=== PATIENT | female | born 1955 | race Caucasian/White ===

== ENCOUNTER → 2019-08-01 | Outpatient (CLI) | payer MEDICARE, MEDICAID ==
[~2019-08-01] MED LIST: FISH1000 PO; LISI20TA19 PO; MULTCAP PO; NAPR-885 PO; OMEP-218 PO
--- NOTE | 2019-08-01 18:00 | ECGEPIP ---
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
== END ==
LOC: M EKG 15:30
PROVIDERS: ATTEND Anesthesiology
DX: Z01.810 Encounter for preprocedural cardiovascular examination (principal)

== ENCOUNTER 2019-08-04 08:02 | Day surgery (SDC) | payer MEDICARE, MEDICAID ==
[~2019-08-04] VITALS: Ht 172.7 cm; Wt 113.9 kg
[2019-08-04 09:02] LABS: HEMATOCRIT 46.5 % (36.0-47.0); MEAN CORPUSCULAR HEMOGLOBIN 28.7 pg (27.0-33.0); MEAN CORPUSCULAR HGB CONC 32.3 g/dl (32.0-36.5); MEAN CORPUSCULAR VOLUME 89.1 fl (80.0-96.0); PLATELET COUNT, AUTOMATED 286 10^3/uL (150-450); RED BLOOD COUNT 5.22 10^6/uL (4.00-5.40); WHITE BLOOD COUNT 8.8 10^3/uL (4.0-10.0)
[2019-08-04] MEDS ORDERED: PROPOFOL 200 MG/20 ML VIAL As Ordered ONE (09:45)
[2019-08-04] MEDS ORDERED: LIDOCAINE 2% INJ 100 MG/5 ML SDV (FOR ANES.) As Ordered ONE (09:45)
[2019-08-04] MEDS ORDERED: ONDANSETRON 4MG/2ML VIAL (J2405) As Ordered ONE (09:46)
[2019-08-04] MEDS ORDERED: dexameTHASONE 4 MG/ML 1ML VIAL (J1100) As Ordered ONE (09:46)
[2019-08-04] MEDS ORDERED: KETOROLAC 60 MG/2 ML VIAL (J1885) As Ordered ONE (09:46)
[2019-08-04] MEDS ORDERED: fentaNYL 100 MCG/2 ML INJECTION (J3010) As Ordered ONE (09:49)
[2019-08-04] MEDS ORDERED: MIDAZOLAM INJ 2 MG/2 ML VIAL (J2250) As Ordered ONE (09:49)
[2019-08-04] MEDS ORDERED: PHENYLephrine HCL 500 MCG/5 ML (100MCG/ML) SYRINGE (J2370) As Ordered ONE (10:11)
[2019-08-04] MEDS ORDERED: LR 1,000 ML IV SCH (11:00)
[2019-08-04] MEDS ORDERED: oxyCODONE 5MG TAB PO PRN (11:00)
[2019-08-04] MEDS ORDERED: ONDANSETRON 4MG/2ML VIAL (J2405) IV PRN (11:00)
[2019-08-04] MEDS ORDERED: fentaNYL 100 MCG/2 ML INJECTION (J3010) IV PRN (11:00)
[2019-08-04 11:15] VITALS: BP 133/67
[2019-08-04] MEDS ORDERED: ACETAMINOPHEN 500 MG TAB PO ONE (12:00)
--- NOTE | 2019-08-07 15:58 | RO ---
DATE OF OPERATION: 08/04/2019 PREOPERATIVE DIAGNOSIS: Postmenopausal bleeding. POSTOPERATIVE DIAGNOSIS: Postmenopausal bleeding. PROCEDURE: Hysteroscopy, dilation and curettage (D and C), polypectomy. SURGEON: Jose Zuniga MD DIESEL SERVICE APPRENTICE: ANESTHESIA: General endotracheal. ESTIMATED BLOOD LOSS: 10 mL. URINE OUTPUT: 200 mL. FINDINGS: Normal size uterus. Moderately large endometrial polyp attached to the posterior uterine fundus. Otherwise, normal appearing endometrial cavity. OPERATIVE SUMMARY: The patient taken to the operating room where general endotracheal anesthesia was induced. Her bladder was emptied with a catheter. Speculum was placed in the vagina. The anterior lip of the cervix was grasped with a tenaculum. The cervix was dilated with tapered dilators. A diagnostic hysteroscope with MyoSure capability was inserted through the internal os. Visualization of the endometrial cavity revealed the findings noted above. MyoSure device was inserted through the operative port of the scope. The polyp was removed in its entirety. The hysteroscope was removed. Sharp curettage was performed. All instruments were removed. Sponge and instrument counts were correct.
== END 2019-08-04 12:00 | disposition home or self-care (01) ==
LOC: M SDC 08:02
PROVIDERS: ATTEND Specialist
DX: N85.8 Other specified noninflammatory disorders of uterus (principal); I10 Essential (primary) hypertension; M17.0 Bilateral primary osteoarthritis of knee; M54.9 Dorsalgia, unspecified; Z91.040 Latex allergy status; Z91.048 Other nonmedicinal substance allergy status; Z79.899 Other long term (current) drug therapy; Z79.1 Long term (current) use of non-steroidal anti-inflammatories (NSAID)
CPT/HCPCS: 36415; 58558; 85027; 88305; J1100; J1885; J2250; J2370; J2405; J3010

== ENCOUNTER → 2022-07-21 | Outpatient (CLI) | payer MEDICARE, MEDICAID ==
[~2022-07-21] MED LIST changes: -LISI20TA19 PO; +LISI20TA35 PO; +OMEP-173 PO; -OMEP-218 PO
== END ==
LOC: M WHC 12:23
PROVIDERS: ATTEND Nurse Practitioner Family
DX: N95.9 Unspecified menopausal and perimenopausal disorder (principal); Z12.31 Encounter for screening mammogram for malignant neoplasm of breast

== ENCOUNTER 2022-10-18 04:12 | Emergency (ER) | payer MEDICARE, MEDICAID ==
[~2022-10-18] VITALS: Ht 170.2 cm; Wt 129.0 kg
[2022-10-18 05:34] LABS: APPEARANCE, URINE HAZY (CLEAR); BACTERIA, URINE AUTO NEGATIVE (NEGATIVE); BILIRUBIN, URINE AUTO NEGATIVE (NEGATIVE); BLOOD, URINE BLOOD NEGATIVE (NEGATIVE); COLOR, URINE YELLOW (YELLOW); GLUCOSE, URINE (UA) AUTO NEGATIVE (NEGATIVE); KETONE, URINE AUTO 1+ mg/dL (NEGATIVE); LEUKOCYTE ESTERASE, URINE AUTO NEGATIVE (NEGATIVE); MUCUS, URINE SMALL (NEGATIVE); NITRITE, URINE AUTO NEGATIVE (NEGATIVE); PROTEIN, URINE AUTO 1+ mg/dL (NEGATIVE); RBC, URINE AUTO 1 /HPF (0-3); SPECIFIC GRAVITY URINE AUTO 1.028 (1.002-1.035); SQUAMOUS EPITHELIAL CELL UR AU 2 /HPF (0-6); UROBILINOGEN, URINE AUTO 0.2 mg/dL (0.0-2.0); WBC, URINE AUTO 1 /HPF (0-3)
[2022-10-18] MEDS ORDERED: NS 1,000 ML IV ONE (07:05)
[2022-10-18] MEDS ORDERED: ONDANSETRON 4MG 2ML VIAL IV ONE (07:15)
[2022-10-18 07:32] LABS: BASO % 0.1 % (0.0-1.0); HEMATOCRIT 42.7 % (36.0-47.0); HEMOGLOBIN 14.2 g/dl (12.0-15.5); LYMPH # 1.1 10^3/uL (1.5-5.0); LYMPH % 6.8 % (24.0-44.0); MEAN CORPUSCULAR HGB CONC 33.3 g/dl (32.0-36.5); MEAN CORPUSCULAR VOLUME 87.1 fl (80.0-96.0); MONO # 1.2 10^3/uL (0.0-0.8); MONO % 7.9 % (2.0-8.0); NEUTROPHILS # 13.3 10^3/uL (1.5-8.5); NEUTROPHILS % 84.8 % (36.0-66.0); PLATELET COUNT, AUTOMATED 281 10^3/uL (150-450); WHITE BLOOD COUNT 15.6 10^3/uL (4.0-10.0)
[2022-10-18 07:51] VITALS: BP 160/74
[2022-10-18 08:07] LABS: ALBUMIN 3.7 G/DL (3.2-5.2); BILIRUBIN,DIRECT 0.2 MG/DL (<0.4); BILIRUBIN,TOTAL 0.7 MG/DL (0.3-1.2); CALCIUM LEVEL 9.3 MG/DL (8.3-10.6); CREATININE FOR GFR 1.34 MG/DL (0.55-1.30); GLOMERULAR FILTRATION RATE 41.9 (>45); POTASSIUM SERUM 3.8 MMOL/L (3.5-5.1)
[2022-10-18] MEDS ORDERED: METOCLOPRAMIDE INJ 10MG/2ML VIAL IV ONE (09:25)
[2022-10-18] MEDS ORDERED: ISOVUE-370 76% 100ML VIAL As Ordered ONE (09:32)
[2022-10-18] MEDS ORDERED: KETOROLAC 30 MG/ML 1ML VIAL IV ONE (11:15)
[2022-10-18] MEDS ORDERED: PERC5TAB12 PO (13:10)
[2022-10-18] MEDS ORDERED: ONDA4TAB6 PO (13:10)
[2022-10-18 14:01] VITALS: BP 131/60
[2022-12-27] MEDS ORDERED: BENZ200C70 PO (12:47)
[2022-12-27] MEDS ORDERED: FLOM0.4C39 PO (12:47)
[2022-12-27] MEDS ORDERED: VITMTA PO (12:47)
[2022-12-27] MEDS ORDERED: AMOX875T PO (12:47)
[2022-12-27] MEDS ORDERED: OMEG10002 PO (12:47)
== END 2022-10-18 14:20 | disposition home or self-care (01) ==
LOC: M ED 04:12
DX: N20.2 Calculus of kidney with calculus of ureter (principal); N28.1 Cyst of kidney, acquired; R94.31 Abnormal electrocardiogram [ECG] [EKG]; K44.9 Diaphragmatic hernia without obstruction or gangrene; K57.30 Diverticulosis of large intestine without perforation or abscess without bleeding; K76.0 Fatty (change of) liver, not elsewhere classified; N85.2 Hypertrophy of uterus; D25.9 Leiomyoma of uterus, unspecified; M43.06 Spondylolysis, lumbar region; M25.78 Osteophyte, vertebrae; I10 Essential (primary) hypertension; Z91.048 Other nonmedicinal substance allergy status; Z91.040 Latex allergy status; Z79.899 Other long term (current) drug therapy
CPT/HCPCS: 74177; 80048; 80076; 81001; 83690; 85025; 93005; 96374; 96375; 99284; J1885; J2405; J2765; Q9967

== ENCOUNTER 2023-01-11 09:37 | Day surgery (SDC) | payer MEDICARE, MEDICAID ==
[~2023-01-11] VITALS: Ht 172.7 cm; Wt 111.8 kg
[~2023-01-11 09:37] MED LIST changes: +AMOX875T PO; +BENZ200C70 PO; +FLOM0.4C39 PO; +LIDOCAINE 2% 100MG/5ML SDV (FOR ANES.) As Ordered ONE; +MIDAZOLAM INJ 2MG/2ML VIAL As Ordered ONE; +OMEG10002 PO; +ONDA4TAB6 PO; +ONDANSETRON 4MG 2ML VIAL As Ordered ONE; +PERC5TAB12 PO; +VITMTA PO; +fentaNYL 100 MCG/2 ML INJECTION As Ordered ONE; +propofoL 200 MG/20 ML VIAL As Ordered ONE
[2023-01-11] MEDS ORDERED: LIDOCAINE 1% SDV 5ML VIAL SC PRN (09:55)
[2023-01-11] MEDS ORDERED: LR 1,000 ML IV SCH ×2 (09:55→12:45)
[2023-01-11] MEDS ORDERED: ISOVUE-300 61% 100ML VIAL As Ordered ONE (11:41)
[2023-01-11] MEDS ORDERED: ceFAZolin 2 GM/D5W 50 ML IV BAG As Ordered ONE (12:03)
[2023-01-11] MEDS ORDERED: OXYB5TAB10 PO (12:41)
[2023-01-11] MEDS ORDERED: PYRI1TAB5 PO (12:41)
[2023-01-11] MEDS ORDERED: MACR100C43 PO (12:41)
[2023-01-11] MEDS ORDERED: ONDANSETRON 4MG 2ML VIAL IV PRN (12:45)
[2023-01-11] MEDS ORDERED: oxyCODONE 5MG TAB PO PRN (12:45)
[2023-01-11] MEDS ORDERED: HYDROMORPHONE HCL 0.5 MG/ 0.5 ML SYRINGE IV PRN (12:45)
[2023-01-11] MEDS ORDERED: fentaNYL 100 MCG/2 ML INJECTION IV PRN (12:45)
[2023-01-11 13:25] VITALS: BP 176/79
[2023-01-12] MEDS ORDERED: UNRESOLVED CLARIFICATION ENTRY XX SCH (00:01)
[2023-01-12] MEDS ORDERED: ONDA4TAB6 PO (03:02)
[2023-01-16 20:07] LABS: Ca Ox Monohydrate 100 % (.)
== END 2023-01-11 14:27 | disposition home or self-care (01) ==
LOC: M SDC 09:37
PROVIDERS: ATTEND Urology
DX: N20.1 Calculus of ureter (principal); I10 Essential (primary) hypertension; K21.9 Gastro-esophageal reflux disease without esophagitis; Z91.040 Latex allergy status; Z79.899 Other long term (current) drug therapy

== ENCOUNTER 2023-01-11 23:20 | Emergency (ER) | payer MEDICARE, MEDICAID ==
[~2023-01-11] VITALS: Ht 170.2 cm; Wt 66.8 kg
[~2023-01-11 23:20] MED LIST changes: -LIDOCAINE 2% 100MG/5ML SDV (FOR ANES.) As Ordered ONE; +MACR100C43 PO; -MIDAZOLAM INJ 2MG/2ML VIAL As Ordered ONE; -ONDANSETRON 4MG 2ML VIAL As Ordered ONE; +OXYB5TAB10 PO; +PYRI1TAB5 PO; -fentaNYL 100 MCG/2 ML INJECTION As Ordered ONE; -propofoL 200 MG/20 ML VIAL As Ordered ONE
[2023-01-12] MEDS ORDERED: PROMETHAZINE 25MG/ML 1ML VIAL IV ONE (00:40)
[2023-01-12] MEDS ORDERED: MORPHINE 4 MG/ML 1ML VIAL IV ONE (00:40)
[2023-01-12 01:21] LABS: HEMATOCRIT 40.1 % (36.0-47.0); HEMOGLOBIN 13.5 g/dl (12.0-15.5); LYMPH # 0.4 10^3/uL (1.5-5.0); LYMPH % 5.9 % (24.0-44.0); MEAN CORPUSCULAR HEMOGLOBIN 28.7 pg (27.0-33.0); MEAN CORPUSCULAR HGB CONC 33.7 g/dl (32.0-36.5); MEAN CORPUSCULAR VOLUME 85.3 fl (80.0-96.0); MONO # 0.1 10^3/uL (0.0-0.8); MONO % 1.3 % (2.0-8.0); NEUTROPHILS # 6.9 10^3/uL (1.5-8.5); NEUTROPHILS % 92.1 % (36.0-66.0); PLATELET COUNT, AUTOMATED 276 10^3/uL (150-450); WHITE BLOOD COUNT 7.5 10^3/uL (4.0-10.0)
[2023-01-12 01:42] LABS: CALCIUM LEVEL 9.2 MG/DL (8.3-10.6); CREATININE FOR GFR 1.07 MG/DL (0.55-1.30); GLOMERULAR FILTRATION RATE 54.3 (>45)
[2023-01-12 02:24] LABS: POTASSIUM SERUM 4.1 MMOL/L (3.5-5.1)
[2023-01-12] MEDS ORDERED: ONDA4TAB6 PO (03:02)
[2023-01-12] MEDS ORDERED: ONDANSETRON 4MG ORAL DISINTEGRATING TAB PO ONE (03:05)
[2023-01-12 03:41] VITALS: BP 142/84
== END 2023-01-12 04:11 | disposition home or self-care (01) ==
LOC: M ED 23:20
DX: R10.9 Unspecified abdominal pain (principal); R11.2 Nausea with vomiting, unspecified; K21.9 Gastro-esophageal reflux disease without esophagitis; I10 Essential (primary) hypertension; Z91.040 Latex allergy status; Z91.048 Other nonmedicinal substance allergy status; Z79.811 Long term (current) use of aromatase inhibitors; Z79.810 Long term (current) use of selective estrogen receptor modulators (SERMs); Z79.83 Long term (current) use of bisphosphonates; Z79.899 Other long term (current) drug therapy
CPT/HCPCS: 74420; 76775; 80048; 82365; 85025; 96374; 96375; 99284; J0690; J1100; J2250; J2405; J2550; J3010; Q9967

== ENCOUNTER 2023-12-21 21:34 | Emergency (ER) | payer MEDICARE, MEDICAID ==
[~2023-12-21] VITALS: Ht 168.9 cm; Wt 106.8 kg
[~2023-12-21 21:34] MED LIST changes: +HYDR-3363 PO; -OXYB5TAB10 PO; +OXYB5TAB14 PO; +TIZA2CAP PO
[2023-12-21 22:23] LABS: BASO % 0.2 % (0.0-1.0); EOS # 0.3 10^3/uL (0.0-0.5); EOS % 1.8 % (0.0-3.0); HEMATOCRIT 34.4 % (36.0-47.0); HEMOGLOBIN 11.7 g/dl (12.0-15.5); LYMPH # 1.1 10^3/uL (1.5-5.0); LYMPH % 6.5 % (24.0-44.0); MEAN CORPUSCULAR HEMOGLOBIN 28.9 pg (27.0-33.0); MEAN CORPUSCULAR VOLUME 84.9 fl (80.0-96.0); MONO % 11.2 % (2.0-8.0); NEUTROPHILS # 13.8 10^3/uL (1.5-8.5); NEUTROPHILS % 79.3 % (36.0-66.0); PLATELET COUNT, AUTOMATED 435 10^3/uL (150-450); RED BLOOD COUNT 4.05 10^6/uL (4.00-5.40); WHITE BLOOD COUNT 17.5 10^3/uL (4.0-10.0)
[2023-12-21 22:51] LABS: ALBUMIN 2.1 G/DL (3.2-5.2); BILIRUBIN,DIRECT 3.6 MG/DL (<0.4); BILIRUBIN,TOTAL 4.5 MG/DL (0.3-1.2); CREATININE FOR GFR 1.51 MG/DL (0.55-1.30); GLOMERULAR FILTRATION RATE 36.4 (>45); POTASSIUM SERUM 4.8 MMOL/L (3.5-5.1)
[2023-12-22] MEDS ORDERED: ISOVUE-370 76% 100ML VIAL As Ordered ONE (00:02)
[2023-12-22 01:25] LABS: INR 0.99; PARTIAL THROMBOPLASTIN TIME 25.5 SECONDS (24.8-34.2); PROTHROMBIN TIME 12.8 SECONDS (12.5-14.5)
[2023-12-22] MEDS: KETOROLAC 30 MG/ML 1ML VIAL IV ONE (02:11)
[2023-12-22] MEDS: NS 1,000 ML IV ONE (02:11)
[2023-12-22] MEDS: PIPERACILLIN/TAZOBACTAM SOD 4.5 GM in D5W MINI-BAG PLUS 50 ML IV ONE (02:13)
[2023-12-22 06:50] VITALS: BP 97/56; TEMP 97.7; O2SAT 96
== END 2023-12-22 06:54 | disposition short-term general hospital (02) ==
LOC: M ED 21:34
DX: K83.09 Other cholangitis (principal); C18.9 Malignant neoplasm of colon, unspecified; C22.9 Malignant neoplasm of liver, not specified as primary or secondary; R91.1 Solitary pulmonary nodule; K44.9 Diaphragmatic hernia without obstruction or gangrene; I10 Essential (primary) hypertension; G56.00 Carpal tunnel syndrome, unspecified upper limb; Z87.442 Personal history of urinary calculi; Z91.040 Latex allergy status; Z91.048 Other nonmedicinal substance allergy status; Z79.811 Long term (current) use of aromatase inhibitors; Z79.899 Other long term (current) drug therapy
CPT/HCPCS: 74177; 76705; 80048; 80076; 82140; 83605; 83690; 84145; 85025; 85610; 85730; 87040; 96374; 96375; 99285; J1885; J2543; Q9967

== ENCOUNTER → 2024-01-28 | Outpatient (CLI) | payer MEDICARE, MEDICAID ==
[~2024-01-28] MED LIST changes: +FURO40TA2 PO; +LEVO1TAB38 PO; +LISI20TA33 PO; +ONDA-282 PO; +ONDA-84; -ONDA4TAB6 PO; +PROC10TA5
== END ==
LOC: M IRPRO 09:23
PROVIDERS: ATTEND Internal Medicine Hematology & Oncology
DX: C18.0 Malignant neoplasm of cecum (principal)
CPT/HCPCS: 36569; C1751

== ENCOUNTER → 2024-02-04 | Outpatient (CLI) | payer MEDICARE, MEDICAID ==
[~2024-02-04] VITALS: Ht 170.2 cm; Wt 100.0 kg
[~2024-02-04] MED LIST changes: +LIDOCAINE 1% MDV 20ML VIAL As Ordered ONE; +LIDOCAINE W/EPINEPHRINE 1% 20ML VIAL As Ordered ONE; +MIDAZOLAM INJ 2MG/2ML VIAL As Ordered ONE; +NS 1,000 ML IV SCH; +ceFAZolin 2 GM/D5W 50 ML IV BAG As Ordered ONE; +ceFAZolin SOD 2 GM in IV 1 EA IV ONE; +fentaNYL 100 MCG/2 ML INJECTION As Ordered ONE
[2024-02-04 15:15] VITALS: TEMP 97.7
[2024-02-04 18:20] VITALS: BP 126/75; O2SAT 98
== END ==
LOC: M IRPRO 15:01
PROVIDERS: ATTEND Internal Medicine Hematology & Oncology
DX: C18.9 Malignant neoplasm of colon, unspecified (principal); C78.7 Secondary malignant neoplasm of liver and intrahepatic bile duct
CPT/HCPCS: 36561; C1769; J0690; J2250; J3010

== ENCOUNTER → 2024-03-11 | Outpatient (CLI) | payer MEDICARE, MEDICAID ==
[~2024-03-11] MED LIST changes: +GASTROGRAFIN SOLUTION 30ML ONE; +ISOVUE-370 76% 100ML VIAL ONE; +LIDO30CR18 TOP; -LIDOCAINE 1% MDV 20ML VIAL As Ordered ONE; -LIDOCAINE W/EPINEPHRINE 1% 20ML VIAL As Ordered ONE; +MAGN400T35 PO; -MIDAZOLAM INJ 2MG/2ML VIAL As Ordered ONE; -NS 1,000 ML IV SCH; -ceFAZolin 2 GM/D5W 50 ML IV BAG As Ordered ONE; -ceFAZolin SOD 2 GM in IV 1 EA IV ONE; -fentaNYL 100 MCG/2 ML INJECTION As Ordered ONE; +physical therapy AD
== END ==
LOC: M PLAIMG 09:25
PROVIDERS: ATTEND Internal Medicine Hematology & Oncology
DX: C18.9 Malignant neoplasm of colon, unspecified (principal); K44.9 Diaphragmatic hernia without obstruction or gangrene
CPT/HCPCS: 71260; 74177; Q9963; Q9967

== ENCOUNTER 2024-05-19 15:58 | Observation (INO) | payer MEDICARE, MEDICAID ==
[~2024-05-19] VITALS: Ht 167.6 cm; Wt 87.9 kg
[2024-05-19] VITALS (9 sets, daily range): BP systolic 97–118; BP diastolic 56–80; TEMP 96.8–98.9; O2SAT 98–100
[2024-05-19] MEDS: SODIUM CHLORIDE 0.9% INJ 10 ML SYR IV SCH (09:00)
[~2024-05-19 15:58] MED LIST changes: +ATOR80TA59 PO; +ELIQ5TAB PO; -GASTROGRAFIN SOLUTION 30ML ONE; -ISOVUE-370 76% 100ML VIAL ONE; -ONDA-84; +ONDA-84 PO; +POTA-151 PO; -PROC10TA5; +PROC10TA5 PO
[2024-05-19] MEDS ORDERED: SODIUM CHLORIDE 0.9% INJ 10 ML SYR IV PRN (17:00)
[2024-05-19] MEDS: NS 1,000 ML IV ONE ×2 (17:31→20:50)
[2024-05-19] MEDS ORDERED: ACETAMINOPHEN 325 MG TAB PO PRN (19:35)
[2024-05-19] MEDS ORDERED: LISI20TA37 PO (19:36)
[2024-05-19] MEDS ORDERED: HOME MED LIST COMPLETE! XX SCH (19:40)
[2024-05-19] MEDS ORDERED: ONDANSETRON 4MG TAB PO PRN (20:50)
[2024-05-19] MEDS ORDERED: PROCHLORPERAZINE 5MG TAB PO PRN (20:50)
[2024-05-20] MEDS: cefTRIAXone SOD 1 GM in D5W MINI-BAG PLUS 50 ML IV SCH (00:26)
[2024-05-20 06:32] LABS: HEMATOCRIT 24.5 % (36.0-47.0); HEMOGLOBIN 8.2 g/dl (12.0-15.5); MEAN CORPUSCULAR HEMOGLOBIN 30.5 pg (27.0-33.0); MEAN CORPUSCULAR HGB CONC 33.5 g/dl (32.0-36.5); MEAN CORPUSCULAR VOLUME 91.1 fl (80.0-96.0); RED BLOOD COUNT 2.69 10^6/uL (4.00-5.40); WHITE BLOOD COUNT 8.1 10^3/uL (4.0-10.0)
[2024-05-20 06:36] LABS: PLATELET COUNT, AUTOMATED 35 10^3/uL (150-450)
[2024-05-20 07:02] LABS: BILIRUBIN,TOTAL 1.1 MG/DL (0.3-1.2); CALCIUM LEVEL 8.3 MG/DL (8.3-10.6); CREATININE FOR GFR 1.37 MG/DL (0.55-1.30); GLOMERULAR FILTRATION RATE 40.7 (>45); TOTAL PROTEIN 4.7 G/DL (5.7-8.2)
[2024-05-20] MEDS ORDERED: POTASSIUM CHLORIDE 10MEQ SR TABLET PO SCH (09:00)
[2024-05-20] MEDS: APIXABAN 5 MG TAB (ELIQUIS) PO SCH (09:00)
[2024-05-20] MEDS: ATORVASTATIN 20 MG TAB PO SCH (09:07)
[2024-05-20] MEDS: OMEPRAZOLE 20MG CAP PO SCH (10:36)
[2024-05-20] MEDS: MAGNESIUM OXIDE 400MG TAB (MAG-OX) PO SCH (10:36)
[2024-05-20] MEDS: OMEGA-3 1000MG CAPSULE PO SCH (10:36)
[2024-05-20 12:13] LABS: PROCALCITONIN 1.06 ng/ml
[2024-05-20 13:03] LABS: HEMATOCRIT 25.9 % (36.0-47.0); HEMOGLOBIN 8.7 g/dl (12.0-15.5)
[2024-05-20 16:00] VITALS: BP 101/63
[2024-05-20 16:15] VITALS: O2SAT 80
[2024-05-20 16:39] VITALS: TEMP 96.9
== END 2024-05-20 16:43 | disposition home health service (06) ==
LOC: M ED 15:58 → INTOOBSV 19:35 → M ED INP 19:35
PROVIDERS: ADMIT Internal Medicine; ATTEND Internal Medicine
DX: D64.81 Anemia due to antineoplastic chemotherapy (principal); N17.9 Acute kidney failure, unspecified; C18.0 Malignant neoplasm of cecum; Z86.73 Personal history of transient ischemic attack (TIA), and cerebral infarction without residual deficits; R19.7 Diarrhea, unspecified; Z79.01 Long term (current) use of anticoagulants; Z79.899 Other long term (current) drug therapy; Z91.040 Latex allergy status
CPT/HCPCS: 36430; 71045; 80053; 84145; 85014; 85018; 85027; 86850; 86900; 86901; 86920; 87040; 93005; 93041; 96365; 96375; 96376; 97161; 97530; 99285; G0378; J0696; J1642; P9016

== ENCOUNTER 2024-05-30 04:01 | Emergency (ER) | payer MEDICARE, MEDICAID ==
[~2024-05-30] VITALS: Ht 172.7 cm; Wt 90.0 kg
[~2024-05-30 04:01] MED LIST changes: +LISI20TA37 PO
[2024-05-30 06:00] VITALS: BP 145/87; TEMP 97.6; O2SAT 100
== END 2024-05-30 07:45 | disposition home or self-care (01) ==
LOC: M ED 04:01
DX: S00.03XA Contusion of scalp, initial encounter (principal); W01.198A Fall on same level from slipping, tripping and stumbling with subsequent striking against other object, initial encounter; C22.0 Liver cell carcinoma; C18.9 Malignant neoplasm of colon, unspecified; M25.78 Osteophyte, vertebrae; Y92.002 Bathroom of unspecified non-institutional (private) residence as the place of occurrence of the external cause; Y93.89 Activity, other specified; Y99.9 Unspecified external cause status; Z79.01 Long term (current) use of anticoagulants; Z79.83 Long term (current) use of bisphosphonates; Z79.899 Other long term (current) drug therapy

== ENCOUNTER → 2024-06-30 | Outpatient (CLI) | payer MEDICARE, MEDICAID ==
[~2024-06-30] MED LIST changes: +GASTROGRAFIN SOLUTION 30ML As Ordered ONE; +ISOVUE-370 76% 100ML VIAL As Ordered ONE
== END ==
LOC: M RAD 08:50
PROVIDERS: ATTEND Dietitian, Registered
DX: C18.0 Malignant neoplasm of cecum (principal); C78.7 Secondary malignant neoplasm of liver and intrahepatic bile duct; C78.00 Secondary malignant neoplasm of unspecified lung; C77.9 Secondary and unspecified malignant neoplasm of lymph node, unspecified; I10 Essential (primary) hypertension; F41.9 Anxiety disorder, unspecified
CPT/HCPCS: 71260; 74177; Q9963; Q9967

== ENCOUNTER 2024-08-04 16:03 | Emergency (ER) | payer MEDICARE, MEDICAID ==
[~2024-08-04] VITALS: Ht 167.6 cm; Wt 90.9 kg
[~2024-08-04 16:03] MED LIST changes: -GASTROGRAFIN SOLUTION 30ML As Ordered ONE; -ISOVUE-370 76% 100ML VIAL As Ordered ONE
[2024-08-04 17:32] LABS: BASO # 0.1 10^3/uL (0.0-0.2); BASO % 0.4 % (0.0-1.0); EOS # 0.1 10^3/uL (0.0-0.5); EOS % 0.8 % (0.0-3.0); HEMATOCRIT 37.3 % (36.0-47.0); HEMOGLOBIN 12.1 g/dl (12.0-15.5); LYMPH # 1.4 10^3/uL (1.5-5.0); MEAN CORPUSCULAR HEMOGLOBIN 31.9 pg (27.0-33.0); MEAN CORPUSCULAR HGB CONC 32.4 g/dl (32.0-36.5); MEAN CORPUSCULAR VOLUME 98.4 fl (80.0-96.0); MONO % 7.9 % (2.0-8.0); NEUTROPHILS # 10.1 10^3/uL (1.5-8.5); NEUTROPHILS % 78.4 % (36.0-66.0); RED BLOOD COUNT 3.79 10^6/uL (4.00-5.40); WHITE BLOOD COUNT 12.9 10^3/uL (4.0-10.0)
[2024-08-04 17:34] LABS: PLATELET COUNT, AUTOMATED 98 10^3/uL (150-450)
[2024-08-04] MEDS: NS 500 ML IV ONE (17:35)
[2024-08-04 18:00] LABS: BLOOD UREA NITROGEN 11 MG/DL (9-23); CALCIUM LEVEL 9.4 MG/DL (8.3-10.6); CARBON DIOXIDE LEVEL 24 MMOL/L (20-31); CHLORIDE LEVEL 109 MMOL/L (98-107); CK-MB VALUE MASS < 1.0 NG/ML (<3.6); CREATININE FOR GFR 0.61 MG/DL (0.55-1.30); GLOMERULAR FILTRATION RATE > 60.0 (>45); GLUCOSE, FASTING 98 MG/DL (74-106); POTASSIUM SERUM 4.1 MMOL/L (3.5-5.1); SODIUM LEVEL 142 MMOL/L (136-145)
[2024-08-04 18:04] LABS: CPK CREATINE PHOSPHOKINASE 35 U/L (34-145); MB/CK RELATIVE INDEX 2.85 (< OR =4)
[2024-08-04] MEDS: FACTOR XA,INACTIVATED-ZHZO 400 MG in APPROPRIATE DILUENT 40 ML IV ONE (18:48)
[2024-08-04] MEDS: FACTOR XA,INACTIVATED-ZHZO 480 MG in APPROPRIATE DILUENT 48 ML IV ONE (19:02)
[2024-08-04 19:04] LABS: INR 1.13; PARTIAL THROMBOPLASTIN TIME 31.7 SECONDS (24.8-34.2); PROTHROMBIN TIME 14.8 SECONDS (12.5-14.5)
[2024-08-04 20:34] VITALS: BP 169/91; TEMP 97.3; O2SAT 99
== END 2024-08-04 20:34 | disposition short-term general hospital (02) ==
LOC: M ED 16:03
DX: I62.00 Nontraumatic subdural hemorrhage, unspecified (principal); I10 Essential (primary) hypertension; F41.9 Anxiety disorder, unspecified; K21.9 Gastro-esophageal reflux disease without esophagitis; Z86.718 Personal history of other venous thrombosis and embolism; Z86.79 Personal history of other diseases of the circulatory system; Z91.040 Latex allergy status; Z91.048 Other nonmedicinal substance allergy status; Z79.01 Long term (current) use of anticoagulants; Z79.02 Long term (current) use of antithrombotics/antiplatelets; Z79.83 Long term (current) use of bisphosphonates; Z79.899 Other long term (current) drug therapy

== ENCOUNTER → 2024-08-25 | Outpatient (REF) ==
[2024-08-25 10:55] LABS: HEMATOCRIT 30.5 % (36.0-47.0); HEMOGLOBIN 9.8 g/dl (12.0-15.5); MEAN CORPUSCULAR HEMOGLOBIN 31.7 pg (27.0-33.0); MEAN CORPUSCULAR HGB CONC 32.1 g/dl (32.0-36.5); MEAN CORPUSCULAR VOLUME 98.7 fl (80.0-96.0); RED BLOOD COUNT 3.09 10^6/uL (4.00-5.40); WHITE BLOOD COUNT 5.3 10^3/uL (4.0-10.0)
[2024-08-25 11:10] LABS: PLATELET COUNT, AUTOMATED 83 10^3/uL (150-450)
[2024-08-25 11:13] LABS: BLOOD UREA NITROGEN 18 MG/DL (9-23); CALCIUM LEVEL 8.3 MG/DL (8.3-10.6); CARBON DIOXIDE LEVEL 25 MMOL/L (20-31); CHLORIDE LEVEL 107 MMOL/L (98-107); CREATININE FOR GFR 0.69 MG/DL (0.55-1.30); GLOMERULAR FILTRATION RATE > 60.0 (>45); GLUCOSE, FASTING 204 MG/DL (74-106); POTASSIUM SERUM 3.7 MMOL/L (3.5-5.1); SODIUM LEVEL 142 MMOL/L (136-145)
== END ==
PROVIDERS: ATTEND Physician Assistant
DX: I63.9 Cerebral infarction, unspecified (principal)

== ENCOUNTER → 2024-08-28 | Outpatient (REF) | PROVIDERS: ATTEND Physician Assistant | DX: R05.9 Cough, unspecified (principal) ==

== ENCOUNTER → 2024-08-28 | Outpatient (REF) | payer MEDICARE, MEDICAID | PROVIDERS: ATTEND Physician Assistant | DX: R05.9 Cough, unspecified (principal); Z95.828 Presence of other vascular implants and grafts ==

== ENCOUNTER → 2024-08-29 | Outpatient (REF) ==
[2024-08-29 09:10] LABS: BASO % 0.3 % (0.0-1.0); EOS # 0.1 10^3/uL (0.0-0.5); EOS % 3.7 % (0.0-3.0); HEMATOCRIT 32.5 % (36.0-47.0); HEMOGLOBIN 10.6 g/dl (12.0-15.5); LYMPH # 1.1 10^3/uL (1.5-5.0); LYMPH % 31.8 % (24.0-44.0); MEAN CORPUSCULAR HEMOGLOBIN 32.1 pg (27.0-33.0); MEAN CORPUSCULAR HGB CONC 32.6 g/dl (32.0-36.5); MEAN CORPUSCULAR VOLUME 98.5 fl (80.0-96.0); MONO # 0.6 10^3/uL (0.0-0.8); MONO % 15.9 % (2.0-8.0); NEUTROPHILS # 1.7 10^3/uL (1.5-8.5); NEUTROPHILS % 48.3 % (36.0-66.0); WHITE BLOOD COUNT 3.5 10^3/uL (4.0-10.0)
[2024-08-29 09:12] LABS: PLATELET COUNT, AUTOMATED 83 10^3/uL (150-450)
[2024-08-29 09:22] LABS: ALBUMIN 2.5 G/DL (3.2-5.2); ALKALINE PHOSPHATASE 362 U/L (35-104); ALT/SGPT 60 U/L (7.0-40); AST/SGOT 77 U/L (<34); BILIRUBIN,TOTAL 0.9 MG/DL (0.3-1.2); BLOOD UREA NITROGEN 15 MG/DL (9-23); CALCIUM LEVEL 8.4 MG/DL (8.3-10.6); CARBON DIOXIDE LEVEL 27 MMOL/L (20-31); CHLORIDE LEVEL 108 MMOL/L (98-107); CREATININE FOR GFR 0.71 MG/DL (0.55-1.30); GLOMERULAR FILTRATION RATE > 60.0 (>39); GLUCOSE, FASTING 102 MG/DL (74-106); SODIUM LEVEL 143 MMOL/L (136-145); TOTAL PROTEIN 5.5 G/DL (5.7-8.2)
== END ==
PROVIDERS: ATTEND Physician Assistant
DX: C18.9 Malignant neoplasm of colon, unspecified (principal)

== ENCOUNTER → 2024-09-01 | Outpatient (REF) ==
[2024-09-01 12:01] LABS: HEMATOCRIT 33.6 % (36.0-47.0); HEMOGLOBIN 10.4 g/dl (12.0-15.5); MEAN CORPUSCULAR HEMOGLOBIN 30.6 pg (27.0-33.0); MEAN CORPUSCULAR VOLUME 98.8 fl (80.0-96.0); WHITE BLOOD COUNT 4.4 10^3/uL (4.0-10.0)
[2024-09-01 12:03] LABS: PLATELET COUNT, AUTOMATED 79 10^3/uL (150-450)
[2024-09-01 12:25] LABS: BLOOD UREA NITROGEN 11 MG/DL (9-23); CALCIUM LEVEL 8.4 MG/DL (8.3-10.6); CARBON DIOXIDE LEVEL 28 MMOL/L (20-31); CHLORIDE LEVEL 108 MMOL/L (98-107); CREATININE FOR GFR 0.64 MG/DL (0.55-1.30); GLOMERULAR FILTRATION RATE > 60.0 (>39); GLUCOSE, FASTING 73 MG/DL (74-106); POTASSIUM SERUM 3.9 MMOL/L (3.5-5.1); SODIUM LEVEL 146 MMOL/L (136-145)
== END ==
PROVIDERS: ATTEND Physician Assistant
DX: I63.9 Cerebral infarction, unspecified (principal)

== ENCOUNTER → 2024-09-04 | Outpatient (REF) | payer MEDICAID, MEDICARE ==
[2024-09-04 15:10] LABS: ALBUMIN 2.4 G/DL (3.2-5.2); ALKALINE PHOSPHATASE 347 U/L (35-104); ALT/SGPT 40 U/L (7.0-40); AST/SGOT 48 U/L (<34); BILIRUBIN,TOTAL 0.9 MG/DL (0.3-1.2); BLOOD UREA NITROGEN 14 MG/DL (9-23); CALCIUM LEVEL 8.8 MG/DL (8.3-10.6); CARBON DIOXIDE LEVEL 27 MMOL/L (20-31); CHLORIDE LEVEL 109 MMOL/L (98-107); CREATININE FOR GFR 0.66 MG/DL (0.55-1.30); GLOMERULAR FILTRATION RATE > 60.0 (>39); GLUCOSE, FASTING 155 MG/DL (74-106); POTASSIUM SERUM 4.1 MMOL/L (3.5-5.1); SODIUM LEVEL 141 MMOL/L (136-145); TOTAL PROTEIN 5.6 G/DL (5.7-8.2)
== END ==
PROVIDERS: ATTEND Internal Medicine
DX: R73.09 Other abnormal glucose (principal)

== ENCOUNTER → 2024-09-05 | Outpatient (REF) ==
[2024-09-05 07:36] LABS: BASO % 0.3 % (0.0-1.0); EOS # 0.2 10^3/uL (0.0-0.5); EOS % 6.5 % (0.0-3.0); HEMATOCRIT 30.2 % (36.0-47.0); LYMPH # 0.7 10^3/uL (1.5-5.0); LYMPH % 21.7 % (24.0-44.0); MEAN CORPUSCULAR HEMOGLOBIN 32.1 pg (27.0-33.0); MEAN CORPUSCULAR HGB CONC 33.1 g/dl (32.0-36.5); MEAN CORPUSCULAR VOLUME 96.8 fl (80.0-96.0); MONO # 0.5 10^3/uL (0.0-0.8); MONO % 15.2 % (2.0-8.0); NEUTROPHILS # 1.8 10^3/uL (1.5-8.5); RED BLOOD COUNT 3.12 10^6/uL (4.00-5.40); WHITE BLOOD COUNT 3.2 10^3/uL (4.0-10.0)
[2024-09-05 07:37] LABS: PLATELET COUNT, AUTOMATED 84 10^3/uL (150-450)
[2024-09-05 07:58] LABS: ALBUMIN 2.1 G/DL (3.2-5.2); ALKALINE PHOSPHATASE 300 U/L (35-104); ALT/SGPT 34 U/L (7.0-40); AST/SGOT 42 U/L (<34); BILIRUBIN,TOTAL 0.7 MG/DL (0.3-1.2); BLOOD UREA NITROGEN 12 MG/DL (9-23); CALCIUM LEVEL 8.5 MG/DL (8.3-10.6); CARBON DIOXIDE LEVEL 28 MMOL/L (20-31); CHLORIDE LEVEL 107 MMOL/L (98-107); CREATININE FOR GFR 0.66 MG/DL (0.55-1.30); GLOMERULAR FILTRATION RATE > 60.0 (>39); GLUCOSE, FASTING 86 MG/DL (74-106); POTASSIUM SERUM 4.1 MMOL/L (3.5-5.1); SODIUM LEVEL 144 MMOL/L (136-145); TOTAL PROTEIN 5.1 G/DL (5.7-8.2)
== END ==
PROVIDERS: ATTEND Physician Assistant
DX: C18.9 Malignant neoplasm of colon, unspecified (principal); C78.7 Secondary malignant neoplasm of liver and intrahepatic bile duct

== ENCOUNTER → 2024-09-17 | Outpatient (REF) ==
[2024-09-17 10:48] LABS: HEMATOCRIT 35.8 % (36.0-47.0); HEMOGLOBIN 11.3 g/dl (12.0-15.5); MEAN CORPUSCULAR HEMOGLOBIN 30.3 pg (27.0-33.0); MEAN CORPUSCULAR HGB CONC 31.6 g/dl (32.0-36.5); PLATELET COUNT, AUTOMATED 111 10^3/uL (150-450); RED BLOOD COUNT 3.73 10^6/uL (4.00-5.40); WHITE BLOOD COUNT 4.4 10^3/uL (4.0-10.0)
[2024-09-17 11:18] LABS: BLOOD UREA NITROGEN 14 MG/DL (9-23); CALCIUM LEVEL 8.8 MG/DL (8.3-10.6); CARBON DIOXIDE LEVEL 25 MMOL/L (20-31); CHLORIDE LEVEL 104 MMOL/L (98-107); CREATININE FOR GFR 0.69 MG/DL (0.55-1.30); GLOMERULAR FILTRATION RATE > 60.0 (>39); GLUCOSE, FASTING 142 MG/DL (74-106); POTASSIUM SERUM 3.6 MMOL/L (3.5-5.1); SODIUM LEVEL 143 MMOL/L (136-145)
== END ==
PROVIDERS: ATTEND Physician Assistant
DX: I63.9 Cerebral infarction, unspecified (principal)

== ENCOUNTER → 2024-09-19 | Outpatient (REF) ==
[~2024-09-19] MED LIST changes: +GUAI600T54 PO; +LISI10TA22 PO; +OMEP40CA4 PO
[2024-09-19 08:18] LABS: BASO % 0.4 % (0.0-1.0); EOS # 0.3 10^3/uL (0.0-0.5); EOS % 6.1 % (0.0-3.0); HEMATOCRIT 36.9 % (36.0-47.0); HEMOGLOBIN 12.1 g/dl (12.0-15.5); LYMPH # 1.2 10^3/uL (1.5-5.0); LYMPH % 21.4 % (24.0-44.0); MEAN CORPUSCULAR HEMOGLOBIN 30.9 pg (27.0-33.0); MEAN CORPUSCULAR HGB CONC 32.8 g/dl (32.0-36.5); MEAN CORPUSCULAR VOLUME 94.4 fl (80.0-96.0); MONO # 0.6 10^3/uL (0.0-0.8); MONO % 11.1 % (2.0-8.0); NEUTROPHILS # 3.4 10^3/uL (1.5-8.5); NEUTROPHILS % 60.6 % (36.0-66.0); PLATELET COUNT, AUTOMATED 120 10^3/uL (150-450); RED BLOOD COUNT 3.91 10^6/uL (4.00-5.40); WHITE BLOOD COUNT 5.6 10^3/uL (4.0-10.0)
[2024-09-19 08:55] LABS: ALBUMIN 2.6 G/DL (3.2-5.2); ALKALINE PHOSPHATASE 378 U/L (35-104); ALT/SGPT 37 U/L (7.0-40); AST/SGOT 62 U/L (<34); BILIRUBIN,TOTAL 0.8 MG/DL (0.3-1.2); BLOOD UREA NITROGEN 13 MG/DL (9-23); CALCIUM LEVEL 8.8 MG/DL (8.3-10.6); CARBON DIOXIDE LEVEL 27 MMOL/L (20-31); CHLORIDE LEVEL 104 MMOL/L (98-107); CREATININE FOR GFR 0.68 MG/DL (0.55-1.30); GLOMERULAR FILTRATION RATE > 60.0 (>39); GLUCOSE, FASTING 95 MG/DL (74-106); POTASSIUM SERUM 4.1 MMOL/L (3.5-5.1); SODIUM LEVEL 144 MMOL/L (136-145); TOTAL PROTEIN 6.3 G/DL (5.7-8.2)
== END ==
PROVIDERS: ATTEND Physician Assistant
DX: C18.9 Malignant neoplasm of colon, unspecified (principal)

== ENCOUNTER → 2024-10-03 | Outpatient (REF) ==
[~2024-10-03] MED LIST changes: +ACET-907 PO; +BACT800T5 PO; +BISA10SU27 PR; +MIRA3350 PO; +MONI1CRE2 PV; +SENN-23 PO
== END ==
PROVIDERS: ATTEND Physician Assistant
DX: Z53.9 Procedure and treatment not carried out, unspecified reason (principal)

== ENCOUNTER → 2024-10-06 | Outpatient (REF) ==
[2024-10-06 14:07] LABS: BASO % 0.3 % (0.0-1.0); EOS # 0.1 10^3/uL (0.0-0.5); EOS % 0.9 % (0.0-3.0); HEMATOCRIT 36.7 % (36.0-47.0); LYMPH # 1.3 10^3/uL (1.5-5.0); LYMPH % 13.3 % (24.0-44.0); MEAN CORPUSCULAR HEMOGLOBIN 31.2 pg (27.0-33.0); MEAN CORPUSCULAR HGB CONC 32.7 g/dl (32.0-36.5); MEAN CORPUSCULAR VOLUME 95.3 fl (80.0-96.0); MONO # 0.9 10^3/uL (0.0-0.8); MONO % 9.3 % (2.0-8.0); NEUTROPHILS # 7.6 10^3/uL (1.5-8.5); NEUTROPHILS % 75.4 % (36.0-66.0); RED BLOOD COUNT 3.85 10^6/uL (4.00-5.40)
[2024-10-06 14:13] LABS: PLATELET COUNT, AUTOMATED 91 10^3/uL (150-450)
[2024-10-06 14:35] LABS: ALBUMIN 2.9 G/DL (3.2-5.2); ALKALINE PHOSPHATASE 477 U/L (35-104); ALT/SGPT 51 U/L (7.0-40); AST/SGOT 72 U/L (<34); BILIRUBIN,TOTAL 0.6 MG/DL (0.3-1.2); BLOOD UREA NITROGEN 12 MG/DL (9-23); CALCIUM LEVEL 8.8 MG/DL (8.3-10.6); CARBON DIOXIDE LEVEL 28 MMOL/L (20-31); CHLORIDE LEVEL 102 MMOL/L (98-107); CREATININE FOR GFR 0.67 MG/DL (0.55-1.30); GLOMERULAR FILTRATION RATE > 60.0 (>39); GLUCOSE, FASTING 126 MG/DL (74-106); POTASSIUM SERUM 4.8 MMOL/L (3.5-5.1); SODIUM LEVEL 141 MMOL/L (136-145); TOTAL PROTEIN 6.4 G/DL (5.7-8.2)
== END ==
PROVIDERS: ATTEND Physician Assistant
DX: C18.9 Malignant neoplasm of colon, unspecified (principal)

== ENCOUNTER → 2024-10-06 | Outpatient (REF) | payer MEDICAID, MEDICARE ==
[~2024-10-06] MED LIST changes: +ISOVUE-370 76% 100ML VIAL As Ordered ONE
== END ==
LOC: EDSTATUS 13:30 → M RAD 13:34
PROVIDERS: ATTEND Internal Medicine Hematology & Oncology
DX: C18.9 Malignant neoplasm of colon, unspecified (principal)

== ENCOUNTER → 2024-10-07 | Outpatient (REF) ==
[~2024-10-07] MED LIST changes: -ISOVUE-370 76% 100ML VIAL As Ordered ONE
== END ==
PROVIDERS: ATTEND Physician Assistant
DX: N39.0 Urinary tract infection, site not specified (principal); Z53.9 Procedure and treatment not carried out, unspecified reason

== ENCOUNTER → 2024-10-17 | Outpatient (REF) ==
[2024-10-17 09:26] LABS: BASO % 0.3 % (0.0-1.0); EOS # 0.1 10^3/uL (0.0-0.5); HEMOGLOBIN 11.5 g/dl (12.0-15.5); LYMPH # 0.7 10^3/uL (1.5-5.0); LYMPH % 11.7 % (24.0-44.0); MEAN CORPUSCULAR HEMOGLOBIN 29.9 pg (27.0-33.0); MEAN CORPUSCULAR HGB CONC 31.9 g/dl (32.0-36.5); MEAN CORPUSCULAR VOLUME 93.8 fl (80.0-96.0); MONO # 0.8 10^3/uL (0.0-0.8); MONO % 13.9 % (2.0-8.0); NEUTROPHILS # 4.3 10^3/uL (1.5-8.5); NEUTROPHILS % 72.8 % (36.0-66.0); PLATELET COUNT, AUTOMATED 213 10^3/uL (150-450); RED BLOOD COUNT 3.84 10^6/uL (4.00-5.40); WHITE BLOOD COUNT 5.9 10^3/uL (4.0-10.0)
[2024-10-17 09:53] LABS: ALBUMIN 2.9 G/DL (3.2-5.2); ALKALINE PHOSPHATASE 421 U/L (35-104); ALT/SGPT 47 U/L (7.0-40); AST/SGOT 58 U/L (<34); BLOOD UREA NITROGEN 13 MG/DL (9-23); CALCIUM LEVEL 9.3 MG/DL (8.3-10.6); CARBON DIOXIDE LEVEL 28 MMOL/L (20-31); CHLORIDE LEVEL 104 MMOL/L (98-107); CREATININE FOR GFR 0.67 MG/DL (0.55-1.30); GLOMERULAR FILTRATION RATE > 60.0 (>39); GLUCOSE, FASTING 164 MG/DL (74-106); POTASSIUM SERUM 4.2 MMOL/L (3.5-5.1); SODIUM LEVEL 141 MMOL/L (136-145); TOTAL PROTEIN 6.3 G/DL (5.7-8.2)
== END ==
PROVIDERS: ATTEND Internal Medicine
DX: C18.9 Malignant neoplasm of colon, unspecified (principal)

== ENCOUNTER → 2024-10-31 | Outpatient (REF) ==
[2024-10-31 07:28] LABS: BASO % 0.3 % (0.0-1.0); EOS # 0.2 10^3/uL (0.0-0.5); EOS % 1.8 % (0.0-3.0); HEMATOCRIT 32.8 % (36.0-47.0); HEMOGLOBIN 10.8 g/dl (12.0-15.5); LYMPH # 1.3 10^3/uL (1.5-5.0); LYMPH % 12.3 % (24.0-44.0); MEAN CORPUSCULAR HEMOGLOBIN 30.5 pg (27.0-33.0); MEAN CORPUSCULAR HGB CONC 32.9 g/dl (32.0-36.5); MEAN CORPUSCULAR VOLUME 92.7 fl (80.0-96.0); MONO # 1.2 10^3/uL (0.0-0.8); MONO % 11.1 % (2.0-8.0); RED BLOOD COUNT 3.54 10^6/uL (4.00-5.40); WHITE BLOOD COUNT 10.7 10^3/uL (4.0-10.0)
[2024-10-31 07:51] LABS: PLATELET COUNT, AUTOMATED 72 10^3/uL (150-450)
[2024-10-31 07:54] LABS: ALBUMIN 2.9 G/DL (3.2-5.2); ALKALINE PHOSPHATASE 545 U/L (35-104); ALT/SGPT 59 U/L (7.0-40); AST/SGOT 43 U/L (<34); BILIRUBIN,TOTAL 0.8 MG/DL (0.3-1.2); BLOOD UREA NITROGEN 15 MG/DL (9-23); CALCIUM LEVEL 9.1 MG/DL (8.3-10.6); CARBON DIOXIDE LEVEL 28 MMOL/L (20-31); CHLORIDE LEVEL 101 MMOL/L (98-107); CREATININE FOR GFR 0.62 MG/DL (0.55-1.30); GLOMERULAR FILTRATION RATE > 60.0 (>39); GLUCOSE, FASTING 121 MG/DL (74-106); POTASSIUM SERUM 3.4 MMOL/L (3.5-5.1); SODIUM LEVEL 141 MMOL/L (136-145); TOTAL PROTEIN 6.2 G/DL (5.7-8.2)
== END ==
PROVIDERS: ATTEND Physician Assistant
DX: C18.9 Malignant neoplasm of colon, unspecified (principal)

== ENCOUNTER → 2024-11-05 | Outpatient (REF) | payer MEDICARE, MEDICAID ==
[2024-11-05 09:25] LABS: BASO % 0.2 % (0.0-1.0); EOS # 0.3 10^3/uL (0.0-0.5); EOS % 2.9 % (0.0-3.0); HEMATOCRIT 35.4 % (36.0-47.0); HEMOGLOBIN 11.4 g/dl (12.0-15.5); LYMPH # 1.3 10^3/uL (1.5-5.0); MEAN CORPUSCULAR HEMOGLOBIN 30.2 pg (27.0-33.0); MEAN CORPUSCULAR HGB CONC 32.2 g/dl (32.0-36.5); MEAN CORPUSCULAR VOLUME 93.7 fl (80.0-96.0); MONO # 0.6 10^3/uL (0.0-0.8); MONO % 7.3 % (2.0-8.0); NEUTROPHILS # 6.4 10^3/uL (1.5-8.5); NEUTROPHILS % 73.9 % (36.0-66.0); RED BLOOD COUNT 3.78 10^6/uL (4.00-5.40); WHITE BLOOD COUNT 8.7 10^3/uL (4.0-10.0)
[2024-11-05 09:31] LABS: PLATELET COUNT, AUTOMATED 97 10^3/uL (150-450)
== END ==
PROVIDERS: ATTEND Internal Medicine
DX: C18.9 Malignant neoplasm of colon, unspecified (principal); C78.7 Secondary malignant neoplasm of liver and intrahepatic bile duct

== ENCOUNTER → 2024-11-07 | Outpatient (REF) | payer MEDICARE, MEDICAID ==
[2024-11-07 07:51] LABS: BASO % 0.2 % (0.0-1.0); EOS # 0.2 10^3/uL (0.0-0.5); EOS % 2.7 % (0.0-3.0); HEMATOCRIT 35.4 % (36.0-47.0); HEMOGLOBIN 11.4 g/dl (12.0-15.5); LYMPH # 1.2 10^3/uL (1.5-5.0); MEAN CORPUSCULAR HEMOGLOBIN 29.9 pg (27.0-33.0); MEAN CORPUSCULAR HGB CONC 32.2 g/dl (32.0-36.5); MEAN CORPUSCULAR VOLUME 92.9 fl (80.0-96.0); MONO # 0.7 10^3/uL (0.0-0.8); MONO % 8.3 % (2.0-8.0); NEUTROPHILS # 6.4 10^3/uL (1.5-8.5); NEUTROPHILS % 74.5 % (36.0-66.0); RED BLOOD COUNT 3.81 10^6/uL (4.00-5.40); WHITE BLOOD COUNT 8.6 10^3/uL (4.0-10.0)
[2024-11-07 08:02] LABS: PLATELET COUNT, AUTOMATED 93 10^3/uL (150-450)
[2024-11-07 08:13] LABS: ALBUMIN 2.9 G/DL (3.2-5.2); ALKALINE PHOSPHATASE 530 U/L (35-104); ALT/SGPT 45 U/L (7.0-40); AST/SGOT 47 U/L (<34); BILIRUBIN,TOTAL 0.9 MG/DL (0.3-1.2); BLOOD UREA NITROGEN 14 MG/DL (9-23); CALCIUM LEVEL 9.2 MG/DL (8.3-10.6); CARBON DIOXIDE LEVEL 29 MMOL/L (20-31); CHLORIDE LEVEL 100 MMOL/L (98-107); CREATININE FOR GFR 0.62 MG/DL (0.55-1.30); GLOMERULAR FILTRATION RATE > 60.0 (>39); GLUCOSE, FASTING 124 MG/DL (74-106); POTASSIUM SERUM 3.6 MMOL/L (3.5-5.1); SODIUM LEVEL 138 MMOL/L (136-145); TOTAL PROTEIN 6.3 G/DL (5.7-8.2)
== END ==
PROVIDERS: ATTEND Physician Assistant
DX: C18.9 Malignant neoplasm of colon, unspecified (principal); C78.7 Secondary malignant neoplasm of liver and intrahepatic bile duct

== ENCOUNTER → 2024-11-24 | Outpatient (REF) | payer MEDICARE, MEDICAID ==
[2024-11-24 09:03] LABS: BASO % 0.4 % (0.0-1.0); EOS # 0.2 10^3/uL (0.0-0.5); EOS % 1.7 % (0.0-3.0); HEMOGLOBIN 11.4 g/dl (12.0-15.5); LYMPH # 1.3 10^3/uL (1.5-5.0); LYMPH % 13.1 % (24.0-44.0); MEAN CORPUSCULAR HEMOGLOBIN 30.3 pg (27.0-33.0); MEAN CORPUSCULAR HGB CONC 32.6 g/dl (32.0-36.5); MEAN CORPUSCULAR VOLUME 93.1 fl (80.0-96.0); MONO # 0.6 10^3/uL (0.0-0.8); MONO % 6.6 % (2.0-8.0); NEUTROPHILS # 7.4 10^3/uL (1.5-8.5); NEUTROPHILS % 75.8 % (36.0-66.0); RED BLOOD COUNT 3.76 10^6/uL (4.00-5.40); WHITE BLOOD COUNT 9.7 10^3/uL (4.0-10.0)
[2024-11-24 09:04] LABS: PLATELET COUNT, AUTOMATED 93 10^3/uL (150-450)
[2024-11-24 09:26] LABS: ALBUMIN 3.1 G/DL (3.2-5.2); ALKALINE PHOSPHATASE 625 U/L (35-104); ALT/SGPT 47 U/L (7.0-40); AST/SGOT 53 U/L (<34); BILIRUBIN,TOTAL 0.9 MG/DL (0.3-1.2); BLOOD UREA NITROGEN 12 MG/DL (9-23); CALCIUM LEVEL 9.2 MG/DL (8.3-10.6); CARBON DIOXIDE LEVEL 30 MMOL/L (20-31); CHLORIDE LEVEL 102 MMOL/L (98-107); CREATININE FOR GFR 0.66 MG/DL (0.55-1.30); GLOMERULAR FILTRATION RATE > 90.0 (>39); GLUCOSE, FASTING 124 MG/DL (74-106); POTASSIUM SERUM 3.8 MMOL/L (3.5-5.1); SODIUM LEVEL 142 MMOL/L (136-145); TOTAL PROTEIN 6.3 G/DL (5.7-8.2)
[2024-11-24 09:44] LABS: CA19-9 TUMOR MARKER,CARBOHYDRA 30.8 U/ML (<35.0)
== END ==
PROVIDERS: ATTEND Physician Assistant
DX: C18.9 Malignant neoplasm of colon, unspecified (principal); C78.7 Secondary malignant neoplasm of liver and intrahepatic bile duct

== ENCOUNTER → 2024-12-08 | Outpatient (REF) | payer MEDICARE, MEDICAID ==
[~2024-12-08] MED LIST changes: -FLOM0.4C39 PO; +TAMS-18 PO
[2024-12-08 08:14] LABS: BASO % 0.4 % (0.0-1.0); EOS # 0.2 10^3/uL (0.0-0.5); EOS % 2.2 % (0.0-3.0); HEMATOCRIT 30.3 % (36.0-47.0); HEMOGLOBIN 9.9 g/dl (12.0-15.5); LYMPH # 1.4 10^3/uL (1.5-5.0); LYMPH % 12.7 % (24.0-44.0); MEAN CORPUSCULAR HEMOGLOBIN 30.5 pg (27.0-33.0); MEAN CORPUSCULAR HGB CONC 32.7 g/dl (32.0-36.5); MEAN CORPUSCULAR VOLUME 93.2 fl (80.0-96.0); MONO # 0.8 10^3/uL (0.0-0.8); MONO % 7.5 % (2.0-8.0); NEUTROPHILS % 75.6 % (36.0-66.0); RED BLOOD COUNT 3.25 10^6/uL (4.00-5.40); WHITE BLOOD COUNT 10.6 10^3/uL (4.0-10.0)
[2024-12-08 08:16] LABS: PLATELET COUNT, AUTOMATED 78 10^3/uL (150-450)
[2024-12-08 08:32] LABS: ALBUMIN 2.7 G/DL (3.2-5.2); ALKALINE PHOSPHATASE 557 U/L (35-104); ALT/SGPT 37 U/L (7.0-40); AST/SGOT 34 U/L (<34); BILIRUBIN,TOTAL 0.7 MG/DL (0.3-1.2); BLOOD UREA NITROGEN 10 MG/DL (9-23); CALCIUM LEVEL 8.5 MG/DL (8.3-10.6); CARBON DIOXIDE LEVEL 28 MMOL/L (20-31); CHLORIDE LEVEL 103 MMOL/L (98-107); CREATININE FOR GFR 0.66 MG/DL (0.55-1.30); GLOMERULAR FILTRATION RATE > 90.0 (>39); GLUCOSE, FASTING 121 MG/DL (74-106); POTASSIUM SERUM 3.8 MMOL/L (3.5-5.1); SODIUM LEVEL 140 MMOL/L (136-145); TOTAL PROTEIN 5.2 G/DL (5.7-8.2)
[2024-12-08 08:51] LABS: CA19-9 TUMOR MARKER,CARBOHYDRA 27.7 U/ML (<35.0)
== END ==
PROVIDERS: ATTEND Physician Assistant
DX: C18.9 Malignant neoplasm of colon, unspecified (principal); C78.7 Secondary malignant neoplasm of liver and intrahepatic bile duct

== ENCOUNTER → 2024-12-12 | Outpatient (REF) | payer MEDICARE, MEDICAID ==
[2024-12-12 22:34] LABS: APPEARANCE, URINE HAZY (CLEAR); BACTERIA, URINE AUTO 1+ (NEGATIVE); BILIRUBIN, URINE AUTO NEGATIVE (NEGATIVE); BLOOD, URINE BLOOD NEGATIVE (NEGATIVE); COLOR, URINE YELLOW (YELLOW); GLUCOSE, URINE (UA) AUTO NEGATIVE (NEGATIVE); KETONE, URINE AUTO NEGATIVE (NEGATIVE); LEUKOCYTE ESTERASE, URINE AUTO NEGATIVE (NEGATIVE); NITRITE, URINE AUTO NEGATIVE (NEGATIVE); PROTEIN, URINE AUTO NEGATIVE (NEGATIVE); RBC, URINE AUTO 0 /HPF (0-3); SPECIFIC GRAVITY URINE AUTO 1.016 (1.002-1.035); SQUAMOUS EPITHELIAL CELL UR AU 11 /HPF (0-6); UROBILINOGEN, URINE AUTO 0.2 mg/dL (0.0-2.0); WBC, URINE AUTO 5 /HPF (0-3)
== END ==
PROVIDERS: ATTEND Physician Assistant
DX: R10.813 Right lower quadrant abdominal tenderness (principal)

== ENCOUNTER → 2024-12-22 | Outpatient (REF) | payer MEDICARE, MEDICAID ==
[2024-12-22 08:23] LABS: BASO % 0.4 % (0.0-1.0); EOS # 0.2 10^3/uL (0.0-0.5); EOS % 2.9 % (0.0-3.0); HEMATOCRIT 34.2 % (36.0-47.0); HEMOGLOBIN 10.9 g/dl (12.0-15.5); LYMPH # 0.9 10^3/uL (1.5-5.0); LYMPH % 11.9 % (24.0-44.0); MEAN CORPUSCULAR HEMOGLOBIN 30.6 pg (27.0-33.0); MEAN CORPUSCULAR HGB CONC 31.9 g/dl (32.0-36.5); MEAN CORPUSCULAR VOLUME 96.1 fl (80.0-96.0); MONO # 0.8 10^3/uL (0.0-0.8); MONO % 10.3 % (2.0-8.0); NEUTROPHILS # 5.7 10^3/uL (1.5-8.5); NEUTROPHILS % 74.2 % (36.0-66.0); PLATELET COUNT, AUTOMATED 166 10^3/uL (150-450); RED BLOOD COUNT 3.56 10^6/uL (4.00-5.40); WHITE BLOOD COUNT 7.6 10^3/uL (4.0-10.0)
[2024-12-22 08:26] LABS: HEMATOCRIT 34.6 % (36.0-47.0); HEMOGLOBIN 11.1 g/dl (12.0-15.5); MEAN CORPUSCULAR HGB CONC 32.1 g/dl (32.0-36.5); MEAN CORPUSCULAR VOLUME 96.6 fl (80.0-96.0); PLATELET COUNT, AUTOMATED 178 10^3/uL (150-450); RED BLOOD COUNT 3.58 10^6/uL (4.00-5.40); WHITE BLOOD COUNT 7.5 10^3/uL (4.0-10.0)
[2024-12-22 08:47] LABS: ALKALINE PHOSPHATASE 558 U/L (35-104); ALT/SGPT 30 U/L (7.0-40); AST/SGOT 60 U/L (<34); BILIRUBIN,TOTAL 0.9 MG/DL (0.3-1.2); BLOOD UREA NITROGEN 15 MG/DL (9-23); CALCIUM LEVEL 9.4 MG/DL (8.3-10.6); CARBON DIOXIDE LEVEL 28 MMOL/L (20-31); CHLORIDE LEVEL 103 MMOL/L (98-107); CREATININE FOR GFR 0.58 MG/DL (0.55-1.30); GLOMERULAR FILTRATION RATE > 90.0 (>39); GLUCOSE, FASTING 130 MG/DL (74-106); POTASSIUM SERUM 3.4 MMOL/L (3.5-5.1); SODIUM LEVEL 143 MMOL/L (136-145); TOTAL PROTEIN 6.2 G/DL (5.7-8.2)
[2024-12-22 13:31] LABS: CA19-9 TUMOR MARKER,CARBOHYDRA 28.7 U/ML (<35.0)
== END ==
PROVIDERS: ATTEND Physician Assistant
DX: C18.9 Malignant neoplasm of colon, unspecified (principal); C78.7 Secondary malignant neoplasm of liver and intrahepatic bile duct

== ENCOUNTER → 2024-12-26 | Outpatient (REF) | payer MEDICARE, MEDICAID | PROVIDERS: ATTEND Physician Assistant | DX: C18.9 Malignant neoplasm of colon, unspecified (principal); C78.7 Secondary malignant neoplasm of liver and intrahepatic bile duct; Z53.8 Procedure and treatment not carried out for other reasons ==

== ENCOUNTER → 2024-12-26 | Outpatient (REF) | payer MEDICARE, MEDICAID | PROVIDERS: ATTEND Internal Medicine | DX: C18.9 Malignant neoplasm of colon, unspecified (principal); C78.7 Secondary malignant neoplasm of liver and intrahepatic bile duct; Z53.8 Procedure and treatment not carried out for other reasons ==

== ENCOUNTER → 2024-12-26 | Outpatient (REF) | payer MEDICARE, MEDICAID | PROVIDERS: ATTEND Internal Medicine | DX: C18.9 Malignant neoplasm of colon, unspecified (principal); C78.7 Secondary malignant neoplasm of liver and intrahepatic bile duct; Z53.8 Procedure and treatment not carried out for other reasons ==

== ENCOUNTER → 2024-12-30 | Outpatient (CLI) | payer MEDICARE, MEDICAID ==
[~2024-12-30] MED LIST changes: +ISOVUE-370 76% 100ML VIAL As Ordered ONE
== END ==
LOC: M RAD 09:10
PROVIDERS: ATTEND Internal Medicine Medical Oncology
DX: C18.0 Malignant neoplasm of cecum (principal)
CPT/HCPCS: 71260; 74177; Q9967

== ENCOUNTER → 2025-03-17 | Outpatient (CLI) | payer MEDICARE, MEDICAID ==
[~2025-03-17] MED LIST changes: +ATOR40TA75 PO; +CYCL5TAB4 PO; -ISOVUE-370 76% 100ML VIAL As Ordered ONE; +MAGN400T2 PO; +[UNRECOGNIZED DRUG - CODE] MC; +[UNRECOGNIZED DRUG - CODE] XX; +[UNRECOGNIZED DRUG - OTHER] XX
== END ==
LOC: M RAD 14:50
PROVIDERS: ATTEND Internal Medicine Medical Oncology
DX: C18.9 Malignant neoplasm of colon, unspecified (principal); C79.51 Secondary malignant neoplasm of bone; M16.12 Unilateral primary osteoarthritis, left hip; M17.12 Unilateral primary osteoarthritis, left knee

== ENCOUNTER 2025-03-20 00:45 | Inpatient (IN) | payer MEDICAID, MEDICARE, OTHER ==
[~2025-03-20] VITALS: Ht 170.2 cm; Wt 74.7 kg
[2025-03-20] MEDS: PERCOCET 5MG/325MG TAB PO ONE (01:17)
[2025-03-20] MEDS ORDERED: PERCOCET 5MG/325MG TAB PO PRN (04:10)
[2025-03-20] MEDS: NS (Normal Saline) 0.9% 1,000 ML IV SCH (04:47)
[2025-03-20 05:45] LABS: ALT/SGPT 31.0 U/L (7.0-40); AST/SGOT 56.0 U/L (<34); CALCIUM LEVEL 8.9 MG/DL (8.3-10.6); CARBON DIOXIDE LEVEL 27.0 MMOL/L (20-31); CHLORIDE LEVEL 100.0 MMOL/L (98-107); CREATININE FOR GFR 0.72 MG/DL (0.55-1.30); GLOMERULAR FILTRATION RATE 89.9 (>39); MAGNESIUM LEVEL 2.1 MG/DL (1.8-2.4); PHOSPHORUS LEVEL 3.3 MG/DL (2.4-5.1); POTASSIUM SERUM 3.9 MMOL/L (3.5-5.1); SODIUM LEVEL 137.0 MMOL/L (136-145)
[2025-03-20 05:58] LABS: PLATELET COUNT, AUTOMATED 72 10^3/uL (150-450)
[2025-03-20] MEDS: PERCOCET 5MG/325MG TAB PO PRN (06:09)
[2025-03-20] MEDS ORDERED: MAGN400T35 PO (07:47)
[2025-03-20] MEDS ORDERED: HOME MED LIST COMPLETE! XX SCH (07:50)
[2025-03-20] MEDS: DOCUSATE SODIUM 100 MG CAPSULE PO SCH (10:14)
[2025-03-20] MEDS: APIXABAN 5 MG TAB PO SCH (14:47)
[2025-03-20] MEDS: OMEPRAZOLE 20MG CAP PO SCH (14:48)
[2025-03-20 16:36] VITALS: BP 168/78; TEMP 97.3; O2SAT 97
[2025-03-20 19:51] VITALS: BP 117/72; TEMP 97.2; O2SAT 97
[2025-03-20] MEDS: ATORVASTATIN 20 MG TAB PO SCH (20:55)
[2025-03-20] MEDS: MAGNESIUM OXIDE 400 MG TAB PO SCH (20:55)
[2025-03-21 06:00] VITALS: BP 115/67; TEMP 97; O2SAT 97
[2025-03-21 08:00] LABS: PLATELET COUNT, AUTOMATED 52 10^3/uL (150-450)
[2025-03-21 08:23] LABS: LDH LACTATE DEHYDROGENASE 411.0 U/L (120-246)
[2025-03-21 08:24] LABS: ALT/SGPT 33.0 U/L (7.0-40); AST/SGOT 51.0 U/L (<34); CALCIUM LEVEL 8.6 MG/DL (8.3-10.6); CARBON DIOXIDE LEVEL 28.0 MMOL/L (20-31); CHLORIDE LEVEL 100.0 MMOL/L (98-107); CREATININE FOR GFR 0.74 MG/DL (0.55-1.30); GLOMERULAR FILTRATION RATE 87.0 (>39); MAGNESIUM LEVEL 2.0 MG/DL (1.8-2.4); PHOSPHORUS LEVEL 3.6 MG/DL (2.4-5.1); POTASSIUM SERUM 4.1 MMOL/L (3.5-5.1); SODIUM LEVEL 137.0 MMOL/L (136-145)
[2025-03-21 08:26] LABS: ATYPICAL LYMPH 2 % (0-5); LYMPHOCYTES 2 % (16-44); NEUTROPHILS 90 % (28-66)
[2025-03-21 08:28] LABS: PLATELET ESTIMATE DECREASED (NORMAL)
[2025-03-21 09:28] VITALS: BP 116/66; TEMP 97.5; O2SAT 97
[2025-03-21] MEDS: ACETAMINOPHEN 325 MG TAB PO PRN (12:47)
[2025-03-21 12:56] VITALS: BP 102/62; TEMP 97; O2SAT 96
[2025-03-21 14:21] LABS: C REACTIVE PROTEIN QUANTITATIV 3.3 MG/DL (<1.0)
[2025-03-21] MEDS: LR 1,000 ML IV ONE (14:41)
[2025-03-21] MEDS ORDERED: MORPHINE 4 MG/ML 1 ML VIAL IV PRN (15:40)
[2025-03-21 17:58] LABS: KETONE, URINE AUTO RFX NEGATIVE (NEGATIVE); LEUKOCYTE ESTERASE UR AUTO RFX 3+ (NEGATIVE); MUCUS, URINE RFX SMALL (NEGATIVE); NITRITE, URINE AUTO RFX NEGATIVE (NEGATIVE); RBC, URINE AUTO RFX 3 /HPF (0-3); SQUAM EPITHELIAL CELL UR AURFX 1 /HPF (0-6); TRANSITIONAL EPITHELIAL AU RFX 1 /HPF; WBC, URINE AUTO RFX TNTC /HPF (0-3)
[2025-03-21 19:35] VITALS: BP 108/65; TEMP 97; O2SAT 96
[2025-03-22 06:00] VITALS: BP 117/72; TEMP 97.3; O2SAT 96
[2025-03-22 07:08] LABS: BASO # 0.1 10^3/uL (0.0-0.2); BASO % 0.3 % (0.0-1.0); EOS # 0.1 10^3/uL (0.0-0.5); EOS % 0.2 % (0.0-3.0); LYMPH # 0.9 10^3/uL (1.5-5.0); LYMPH % 3.0 % (24.0-44.0); MONO # 0.1 10^3/uL (0.0-0.8); MONO % 0.2 % (2.0-8.0); NEUTROPHILS # 26.7 10^3/uL (1.5-8.5); NEUTROPHILS % 86.0 % (36.0-66.0)
[2025-03-22 07:11] LABS: PLATELET COUNT, AUTOMATED 32 10^3/uL (150-450)
[2025-03-22 07:36] LABS: CALCIUM LEVEL 8.5 MG/DL (8.3-10.6); CARBON DIOXIDE LEVEL 27.0 MMOL/L (20-31); CHLORIDE LEVEL 101.0 MMOL/L (98-107); CREATININE FOR GFR 0.73 MG/DL (0.55-1.30); GLOMERULAR FILTRATION RATE 88.4 (>39); MAGNESIUM LEVEL 2.1 MG/DL (1.8-2.4); POTASSIUM SERUM 3.7 MMOL/L (3.5-5.1); SODIUM LEVEL 139.0 MMOL/L (136-145)
[2025-03-22] MEDS: cefTRIAXone SOD 2 GM in DEXTROSE 5% (D5W) ADV/MINI-BAG 50 ML IV SCH (09:08)
[2025-03-22 12:46] VITALS: BP 122/71; TEMP 97.2; O2SAT 99
[2025-03-22] MEDS: LIDOCAINE/PRILOCAINE CREAM 5 GM TUBE TOP ONE (15:50)
[2025-03-22] MEDS ORDERED: HEPARIN LOCK FLUSH 100 UNITS/ML 3 ML SYRINGE IV PRN (15:55)
[2025-03-22] MEDS ORDERED: SODIUM CHLORIDE 0.9% INJ 10 ML SYR IV PRN (15:55)
[2025-03-22 19:41] VITALS: BP 123/72; TEMP 97.3; O2SAT 97
[2025-03-22 20:00] VITALS: BP 123/72; TEMP 97.3; O2SAT 97
[2025-03-23 06:00] VITALS: BP 122/72; TEMP 97; O2SAT 96
[2025-03-23 06:37] LABS: BASO # 0.0 10^3/uL (0.0-0.2); BASO % 0.2 % (0.0-1.0); EOS # 0.1 10^3/uL (0.0-0.5); EOS % 0.4 % (0.0-3.0); LYMPH # 0.8 10^3/uL (1.5-5.0); LYMPH % 6.6 % (24.0-44.0); MONO # 0.1 10^3/uL (0.0-0.8); MONO % 0.9 % (2.0-8.0); NEUTROPHILS # 10.6 10^3/uL (1.5-8.5); NEUTROPHILS % 83.7 % (36.0-66.0)
[2025-03-23 06:52] LABS: PLATELET COUNT, AUTOMATED 20 10^3/uL (150-450)
[2025-03-23 08:03] LABS: C REACTIVE PROTEIN QUANTITATIV 4.35 MG/DL (<1.0); CALCIUM LEVEL 8.4 MG/DL (8.3-10.6); CARBON DIOXIDE LEVEL 28 MMOL/L (20-31); CHLORIDE LEVEL 102 MMOL/L (98-107); CREATININE FOR GFR 0.63 MG/DL (0.55-1.30); GLOMERULAR FILTRATION RATE > 90.0 (>39); MAGNESIUM LEVEL 2.1 MG/DL (1.8-2.4); POTASSIUM SERUM 4.1 MMOL/L (3.5-5.1); SODIUM LEVEL 139 MMOL/L (136-145)
[2025-03-23 12:00] VITALS: BP 119/74; TEMP 97.5; O2SAT 95
[2025-03-23 20:32] VITALS: BP 134/76; TEMP 97.3; O2SAT 96
[2025-03-24] MEDS: PERCOCET 5MG/325MG TAB PO PRN (03:17)
[2025-03-24 06:11] VITALS: BP 135/77; TEMP 97.7; O2SAT 96
[2025-03-24 08:04] LABS: PLATELET COUNT, AUTOMATED 21 10^3/uL (150-450)
[2025-03-24 08:13] LABS: CALCIUM LEVEL 8.6 MG/DL (8.3-10.6); CARBON DIOXIDE LEVEL 29 MMOL/L (20-31); CHLORIDE LEVEL 103 MMOL/L (98-107); CREATININE FOR GFR 0.58 MG/DL (0.55-1.30); GLOMERULAR FILTRATION RATE > 90.0 (>39); MAGNESIUM LEVEL 2.0 MG/DL (1.8-2.4); POTASSIUM SERUM 3.8 MMOL/L (3.5-5.1); SODIUM LEVEL 140 MMOL/L (136-145)
[2025-03-24 09:02] LABS: LYMPHOCYTES 40 % (16-44); MONOCYTES 4 % (0-5); NEUTROPHILS 53 % (28-66)
[2025-03-24 09:05] LABS: PLATELET ESTIMATE MARKED DECREASE (NORMAL)
[2025-03-24 14:00] VITALS: BP 122/73; TEMP 97.5; O2SAT 100
[2025-03-24] MEDS: CEFPODOXIME PROXETIL 200 MG TABLET PO SCH (20:20)
[2025-03-24] MEDS ORDERED: CEFDINIR 300 MG CAP PO SCH (21:00)
[2025-03-24 21:03] VITALS: BP 123/71; TEMP 97.5
[2025-03-25 05:28] VITALS: BP 120/64; TEMP 97.3; O2SAT 90
[2025-03-25 07:18] LABS: BASO # 0.0 10^3/uL (0.0-0.2); BASO % 2.0 % (0.0-1.0); EOS # 0.0 10^3/uL (0.0-0.5); EOS % 2.6 % (0.0-3.0); LYMPH # 0.8 10^3/uL (1.5-5.0); LYMPH % 55.0 % (24.0-44.0); MONO # 0.1 10^3/uL (0.0-0.8); MONO % 6.6 % (2.0-8.0); NEUTROPHILS % 29.8 % (36.0-66.0)
[2025-03-25 07:24] LABS: CALCIUM LEVEL 8.4 MG/DL (8.3-10.6); CARBON DIOXIDE LEVEL 29 MMOL/L (20-31); CHLORIDE LEVEL 103 MMOL/L (98-107); CREATININE FOR GFR 0.59 MG/DL (0.55-1.30); GLOMERULAR FILTRATION RATE > 90.0 (>39); MAGNESIUM LEVEL 1.9 MG/DL (1.8-2.4); POTASSIUM SERUM 4.1 MMOL/L (3.5-5.1); SODIUM LEVEL 140 MMOL/L (136-145)
[2025-03-25 07:27] LABS: NEUTROPHILS # 0.5 10^3/uL (1.5-8.5); PLATELET COUNT, AUTOMATED 15 10^3/uL (150-450)
[2025-03-25 14:00] VITALS: BP 106/66; TEMP 97.5; O2SAT 97
[2025-03-25 20:17] VITALS: BP 109/66; TEMP 97.3; O2SAT 90
[2025-03-26 00:23] VITALS: O2SAT 98
[2025-03-26 06:00] VITALS: BP 97/58; TEMP 97.3; O2SAT 95
[2025-03-26 07:18] LABS: BASO # 0.0 10^3/uL (0.0-0.2); BASO % 0.8 % (0.0-1.0); EOS # 0.0 10^3/uL (0.0-0.5); EOS % 3.2 % (0.0-3.0); LYMPH # 0.8 10^3/uL (1.5-5.0); LYMPH % 66.9 % (24.0-44.0); MONO # 0.1 10^3/uL (0.0-0.8); MONO % 8.9 % (2.0-8.0); NEUTROPHILS % 20.2 % (36.0-66.0)
[2025-03-26 07:24] LABS: NEUTROPHILS # 0.3 10^3/uL (1.5-8.5); PLATELET COUNT, AUTOMATED 20 10^3/uL (150-450)
[2025-03-26 07:39] LABS: CALCIUM LEVEL 9.0 MG/DL (8.3-10.6); CARBON DIOXIDE LEVEL 30 MMOL/L (20-31); CHLORIDE LEVEL 101 MMOL/L (98-107); CREATININE FOR GFR 0.60 MG/DL (0.55-1.30); GLOMERULAR FILTRATION RATE > 90.0 (>39); MAGNESIUM LEVEL 1.9 MG/DL (1.8-2.4); POTASSIUM SERUM 4.3 MMOL/L (3.5-5.1); SODIUM LEVEL 138 MMOL/L (136-145)
[2025-03-26] MEDS: FILGRASTIM 300 MCG/0.5 ML SYRINGE **SC ADMINISTRATION ONLY SC SCH (09:19)
[2025-03-26 14:30] VITALS: BP 120/69; TEMP 97.5; O2SAT 99
[2025-03-26 20:57] VITALS: BP 104/70; TEMP 97.3; O2SAT 99
[2025-03-27 06:42] LABS: PLATELET COUNT, AUTOMATED 32 10^3/uL (150-450)
[2025-03-27 06:45] VITALS: BP 117/74; TEMP 97.3; O2SAT 98
[2025-03-27 07:08] LABS: CALCIUM LEVEL 8.6 MG/DL (8.3-10.6); CARBON DIOXIDE LEVEL 27 MMOL/L (20-31); CHLORIDE LEVEL 101 MMOL/L (98-107); CREATININE FOR GFR 0.59 MG/DL (0.55-1.30); GLOMERULAR FILTRATION RATE > 90.0 (>39); MAGNESIUM LEVEL 1.9 MG/DL (1.8-2.4); POTASSIUM SERUM 3.9 MMOL/L (3.5-5.1); SODIUM LEVEL 137 MMOL/L (136-145)
[2025-03-27 07:25] LABS: ATYPICAL LYMPH 17 % (0-5); BASOPHILS 1 % (0-1); EOSINOPHILS 3 % (0-3); LYMPHOCYTES 60 % (16-44); MONOCYTES 5 % (0-5); NEUTROPHILS 11 % (28-66); PLATELET ESTIMATE MARKED DECREASE (NORMAL)
[2025-03-27 12:44] VITALS: BP 139/76; TEMP 98.7; O2SAT 100
[2025-03-27 21:20] VITALS: BP 138/77; TEMP 97.7; O2SAT 98
[2025-03-28 07:24] VITALS: BP 107/66; TEMP 97.7; O2SAT 97
[2025-03-28 07:35] LABS: BASO # 0.0 10^3/uL (0.0-0.2); BASO % 1.1 % (0.0-1.0); EOS # 0.1 10^3/uL (0.0-0.5); EOS % 1.3 % (0.0-3.0); LYMPH # 1.1 10^3/uL (1.5-5.0); LYMPH % 28.3 % (24.0-44.0); MONO # 0.6 10^3/uL (0.0-0.8); MONO % 16.5 % (2.0-8.0); NEUTROPHILS # 1.9 10^3/uL (1.5-8.5); NEUTROPHILS % 50.4 % (36.0-66.0)
[2025-03-28 07:44] LABS: PLATELET COUNT, AUTOMATED 49 10^3/uL (150-450)
[2025-03-28 07:56] LABS: CALCIUM LEVEL 8.9 MG/DL (8.3-10.6); CARBON DIOXIDE LEVEL 26 MMOL/L (20-31); CHLORIDE LEVEL 99 MMOL/L (98-107); CREATININE FOR GFR 0.62 MG/DL (0.55-1.30); GLOMERULAR FILTRATION RATE > 90.0 (>39); MAGNESIUM LEVEL 1.8 MG/DL (1.8-2.4); POTASSIUM SERUM 3.6 MMOL/L (3.5-5.1); SODIUM LEVEL 137 MMOL/L (136-145)
[2025-03-28 07:58] LABS: C REACTIVE PROTEIN QUANTITATIV 5.53 MG/DL (<1.0)
[2025-03-28 07:59] LABS: ALT/SGPT 41 U/L (7.0-40); AST/SGOT 36 U/L (<34); CALCIUM LEVEL 9.2 MG/DL (8.3-10.6); CARBON DIOXIDE LEVEL 26 MMOL/L (20-31); CHLORIDE LEVEL 98 MMOL/L (98-107); CREATININE FOR GFR 0.61 MG/DL (0.55-1.30); GLOMERULAR FILTRATION RATE > 90.0 (>39); POTASSIUM SERUM 3.6 MMOL/L (3.5-5.1); SODIUM LEVEL 137 MMOL/L (136-145)
[2025-03-28 14:00] VITALS: BP 106/60; TEMP 97.7; O2SAT 97
[2025-03-28 20:15] VITALS: BP 131/66; TEMP 97.3; O2SAT 98
[2025-03-29 05:20] VITALS: BP 104/65; TEMP 97.2; O2SAT 96
[2025-03-29 07:03] LABS: BASO # 0.1 10^3/uL (0.0-0.2); BASO % 0.8 % (0.0-1.0); EOS # 0.1 10^3/uL (0.0-0.5); EOS % 1.0 % (0.0-3.0); LYMPH # 1.7 10^3/uL (1.5-5.0); LYMPH % 13.4 % (24.0-44.0); MONO # 1.5 10^3/uL (0.0-0.8); MONO % 12.3 % (2.0-8.0); NEUTROPHILS # 8.1 10^3/uL (1.5-8.5); NEUTROPHILS % 64.1 % (36.0-66.0)
[2025-03-29 07:10] LABS: PLATELET COUNT, AUTOMATED 66 10^3/uL (150-450)
[2025-03-29 07:35] LABS: C REACTIVE PROTEIN QUANTITATIV 4.67 MG/DL (<1.0)
[2025-03-29 07:52] LABS: ALT/SGPT 35 U/L (7.0-40); AST/SGOT 40 U/L (<34); CALCIUM LEVEL 8.6 MG/DL (8.3-10.6); CARBON DIOXIDE LEVEL 28 MMOL/L (20-31); CHLORIDE LEVEL 101 MMOL/L (98-107); CREATININE FOR GFR 0.63 MG/DL (0.55-1.30); GLOMERULAR FILTRATION RATE > 90.0 (>39); POTASSIUM SERUM 4.2 MMOL/L (3.5-5.1); SODIUM LEVEL 139 MMOL/L (136-145)
[2025-03-29 14:00] VITALS: BP 109/63; TEMP 97.7; O2SAT 98
[2025-03-29 20:00] VITALS: BP 133/71; TEMP 97.3; O2SAT 97
[2025-03-29] MEDS: APIXABAN 5 MG TAB PO SCH (21:10)
[2025-03-30 06:00] VITALS: BP 100/61; TEMP 97; O2SAT 97
[2025-03-30 06:31] LABS: PLATELET COUNT, AUTOMATED 84 10^3/uL (150-450)
[2025-03-30 06:48] LABS: ATYPICAL LYMPH 5 % (0-5); EOSINOPHILS 2 % (0-3); LYMPHOCYTES 13 % (16-44); MONOCYTES 7 % (0-5); MYELOCYTES 1 % (0-0); NEUTROPHILS 72 % (28-66)
[2025-03-30 06:49] LABS: PLATELET ESTIMATE DECREASED (NORMAL)
[2025-03-30 14:00] VITALS: BP 138/82; TEMP 97.5; O2SAT 96
[2025-03-30] MEDS ORDERED: [UNRECOGNIZED DRUG - CODE] XX (15:28)
[2025-03-30 20:42] VITALS: BP 136/70; TEMP 97.3; O2SAT 96
[2025-03-31 06:26] VITALS: BP 129/73; TEMP 97.2; O2SAT 96
[2025-03-31 07:37] LABS: BASO # 0.1 10^3/uL (0.0-0.2); BASO % 0.4 % (0.0-1.0); EOS # 0.2 10^3/uL (0.0-0.5); EOS % 1.2 % (0.0-3.0); LYMPH # 1.4 10^3/uL (1.5-5.0); LYMPH % 10.7 % (24.0-44.0); MONO # 1.7 10^3/uL (0.0-0.8); MONO % 13.2 % (2.0-8.0); NEUTROPHILS # 9.0 10^3/uL (1.5-8.5); NEUTROPHILS % 69.0 % (36.0-66.0)
[2025-03-31 07:43] LABS: PLATELET COUNT, AUTOMATED 74 10^3/uL (150-450)
[2025-03-31 07:54] VITALS: BP 125/70; TEMP 97.3
[2025-03-31 07:56] LABS: ALT/SGPT 31 U/L (7.0-40); AST/SGOT 49 U/L (<34); C REACTIVE PROTEIN QUANTITATIV 2.28 MG/DL (<1.0); CALCIUM LEVEL 8.3 MG/DL (8.3-10.6); CARBON DIOXIDE LEVEL 31 MMOL/L (20-31); CHLORIDE LEVEL 100 MMOL/L (98-107); CREATININE FOR GFR 0.66 MG/DL (0.55-1.30); GLOMERULAR FILTRATION RATE > 90.0 (>39); POTASSIUM SERUM 3.5 MMOL/L (3.5-5.1); SODIUM LEVEL 141 MMOL/L (136-145)
[2025-03-31 21:29] VITALS: BP 108/66; TEMP 97.5; O2SAT 96
[2025-04-01 06:33] VITALS: BP 118/68; TEMP 97.2; O2SAT 96
[2025-04-01 13:48] VITALS: BP 137/70; TEMP 97.3; O2SAT 92
[2025-04-01 13:52] VITALS: BP 135/52; TEMP 97.5; O2SAT 99
[2025-04-01 21:41] VITALS: BP 132/72; TEMP 97.2
[2025-04-02 05:21] VITALS: BP 134/72; TEMP 97.3; O2SAT 98
[2025-04-02 14:00] VITALS: BP 116/67; TEMP 97.9; O2SAT 97
[2025-04-02 21:26] VITALS: BP 147/74; TEMP 97.9; O2SAT 96
[2025-04-03 05:21] VITALS: BP 129/68; TEMP 97.2; O2SAT 97
[2025-04-03 14:00] VITALS: BP 112/71; TEMP 97.7; O2SAT 93
[2025-04-03 19:53] VITALS: BP 144/80; TEMP 97.3; O2SAT 94
[2025-04-04 05:48] VITALS: BP 130/75; TEMP 97; O2SAT 93
[2025-04-05 05:50] VITALS: BP 128/75; TEMP 97.3; O2SAT 96
[2025-04-06 05:43] VITALS: BP 122/73; TEMP 97.2; O2SAT 97
[2025-04-07 06:19] VITALS: BP 125/75; TEMP 97.5; O2SAT 96
[2025-04-07 14:00] VITALS: BP 121/63; TEMP 97.7; O2SAT 97
[2025-04-08 06:00] VITALS: BP 121/69; TEMP 97.3; O2SAT 98
[2025-04-09] MEDS ORDERED: PERCOCET 5MG/325MG TAB As Ordered ONE (03:26)
[2025-04-09 05:48] VITALS: BP 144/88; TEMP 97.7; O2SAT 98
[2025-04-09 09:08] VITALS: BP 115/76
[2025-04-11 05:34] VITALS: BP 128/75; TEMP 97.2; O2SAT 97
[2025-04-11] MEDS: MAALOX 30 ML SUSP *UDC PO PRN (16:52)
[2025-04-12 06:27] VITALS: BP 105/64; TEMP 97.3; O2SAT 98
[2025-04-12] MEDS: MOM 30 ML SUSPENSION UDC PO PRN (09:41)
[2025-04-13 06:20] VITALS: BP 119/62; TEMP 97.3; O2SAT 99
[2025-04-14 04:52] VITALS: BP 115/70; TEMP 97.5; O2SAT 98
[2025-04-15 06:06] VITALS: BP 119/69; TEMP 97.5; O2SAT 96
[2025-04-15 09:11] LABS: PLATELET COUNT, AUTOMATED 159 10^3/uL (150-450)
[2025-04-15 10:03] LABS: ALT/SGPT 42 U/L (7.0-40); AST/SGOT 90 U/L (<34); CALCIUM LEVEL 9.1 MG/DL (8.3-10.6); CARBON DIOXIDE LEVEL 29 MMOL/L (20-31); CHLORIDE LEVEL 100 MMOL/L (98-107); CREATININE FOR GFR 0.57 MG/DL (0.55-1.30); GLOMERULAR FILTRATION RATE > 90.0 (>39); MAGNESIUM LEVEL 2.1 MG/DL (1.8-2.4); POTASSIUM SERUM 3.6 MMOL/L (3.5-5.1); SODIUM LEVEL 142 MMOL/L (136-145)
[2025-04-16 06:42] VITALS: BP 122/88; TEMP 97.6; O2SAT 95
[2025-04-17 06:39] VITALS: BP 123/87; TEMP 97.5; O2SAT 99
[2025-04-18 06:00] VITALS: BP 127/80; TEMP 97.5; O2SAT 96
[2025-04-18 08:59] VITALS: BP 119/71
[2025-04-19 05:07] VITALS: BP 145/81; TEMP 97.5; O2SAT 100
[2025-04-19 05:08] VITALS: TEMP 97.5
[2025-04-19 05:09] VITALS: BP 145/81
[2025-04-19 08:54] VITALS: BP 135/79
[2025-04-20 04:21] VITALS: BP 128/77; TEMP 97; O2SAT 100
[2025-04-21 06:30] VITALS: BP 128/88; TEMP 97.5
[2025-04-22 06:37] VITALS: BP 125/82; TEMP 97.3; O2SAT 96
[2025-04-23 05:53] VITALS: BP 127/81; TEMP 97.5; O2SAT 96
[2025-04-24 07:08] VITALS: BP 123/7; TEMP 97.5; O2SAT 94
[2025-04-25 06:46] VITALS: BP 123/78; TEMP 97.3; O2SAT 95
[2025-04-25 15:03] LABS: BASO # 0.0 10^3/uL (0.0-0.2); BASO % 0.5 % (0.0-1.0); EOS # 0.5 10^3/uL (0.0-0.5); EOS % 5.5 % (0.0-3.0); LYMPH # 1.0 10^3/uL (1.5-5.0); LYMPH % 12.5 % (24.0-44.0); MONO # 0.8 10^3/uL (0.0-0.8); MONO % 10.0 % (2.0-8.0); NEUTROPHILS # 5.9 10^3/uL (1.5-8.5); NEUTROPHILS % 71.1 % (36.0-66.0); PLATELET COUNT, AUTOMATED 132 10^3/uL (150-450)
[2025-04-27 06:10] VITALS: BP 126/78; TEMP 97.2; O2SAT 99
[2025-04-28 05:15] VITALS: BP 121/79; TEMP 97.3; O2SAT 96
[2025-04-29 05:58] VITALS: BP 127/83; TEMP 97; O2SAT 97
[2025-04-30 06:00] VITALS: BP 130/77; TEMP 97.5; O2SAT 98
[2025-05-01 06:39] VITALS: BP 127/78; TEMP 97; O2SAT 96
[2025-05-02 06:06] VITALS: BP 122/79; TEMP 97.2; O2SAT 97
[2025-05-03 04:16] VITALS: BP 145/93; TEMP 97.5; O2SAT 98
[2025-05-05 06:11] VITALS: BP 134/71; TEMP 97.2; O2SAT 96
[2025-05-06 06:24] VITALS: BP 132/78; TEMP 97.3; O2SAT 96
[2025-05-07 06:49] VITALS: BP 120/82; TEMP 97.3; O2SAT 96
[2025-05-08 06:16] VITALS: BP 138/67; TEMP 97.3; O2SAT 95
[2025-05-10 04:22] VITALS: BP 120/71; TEMP 97.3; O2SAT 100
[2025-05-11 04:29] VITALS: BP 140/85; TEMP 97; O2SAT 98
[2025-05-12 04:00] VITALS: BP 129/69; TEMP 97.5; O2SAT 99
[2025-05-13 06:00] VITALS: BP 126/86; TEMP 97; O2SAT 99
[2025-05-14 07:01] VITALS: BP 129/80; TEMP 97.5; O2SAT 98
[2025-05-15 05:58] VITALS: BP 133/84; TEMP 97.2; O2SAT 99
[2025-05-16 04:46] VITALS: BP 107/69; TEMP 97.2; O2SAT 99
[2025-05-17 05:48] VITALS: BP 132/68; TEMP 97.3; O2SAT 99
[2025-05-18 05:24] VITALS: BP 120/72; TEMP 97.3; O2SAT 94
[2025-05-19 06:00] VITALS: BP 140/78; TEMP 97.9; O2SAT 94
[2025-05-20 05:05] VITALS: BP 117/73; TEMP 97.2; O2SAT 99
[2025-05-21 06:01] VITALS: BP 108/66; TEMP 97.3; O2SAT 97
[2025-05-22 04:25] VITALS: BP 107/66; TEMP 97.5; O2SAT 96
[2025-05-23 04:54] VITALS: BP 115/71; TEMP 97.2; O2SAT 97
[2025-05-24 06:49] VITALS: BP 115/72; TEMP 97.2; O2SAT 98
[2025-05-26 07:25] VITALS: BP 125/51; TEMP 97.2; O2SAT 95
[2025-05-26 08:40] VITALS: BP 124/72; O2SAT 89
[2025-05-27 06:17] VITALS: BP 130/82; TEMP 97.2; O2SAT 91
[2025-05-28 05:51] VITALS: BP 139/87; O2SAT 96
[2025-05-29 06:23] VITALS: BP 116/73; TEMP 97; O2SAT 96
[2025-05-30 06:35] VITALS: BP 117/74; TEMP 97.3; O2SAT 94
[2025-05-31 06:14] VITALS: BP 114/75; TEMP 97.5; O2SAT 96
[2025-06-01 05:19] VITALS: BP 116/72; TEMP 97.2; O2SAT 96
[2025-06-02 05:54] VITALS: BP 117/82; TEMP 97.2; O2SAT 96
[2025-06-03 05:49] VITALS: BP 122/82; TEMP 97.7; O2SAT 96
[2025-06-04 06:07] VITALS: BP 113/74; TEMP 97; O2SAT 91
[2025-06-04 12:00] VITALS: BP 114/73; TEMP 97.2; O2SAT 100
[2025-06-05 07:22] VITALS: BP 115/73; TEMP 97.2; O2SAT 99
[2025-06-09 05:30] VITALS: BP 115/79; TEMP 97.2; O2SAT 98
[2025-06-09 07:56] VITALS: BP 111/78; TEMP 97.2
[2025-06-10 03:41] VITALS: BP 110/83; TEMP 97.5; O2SAT 98
[2025-06-10 14:03] VITALS: BP 139/83; TEMP 97.7; O2SAT 94
[2025-06-11 03:56] VITALS: BP 99/63; TEMP 97.7; O2SAT 97
[2025-06-12 06:08] VITALS: BP 120/78; TEMP 97; O2SAT 97
[2025-06-14 04:35] VITALS: BP 118/76; TEMP 97.2; O2SAT 99
[2025-06-15 04:03] VITALS: BP 119/76; TEMP 97.2; O2SAT 98
[2025-06-15 09:58] VITALS: BP 112/72; TEMP 97.3; O2SAT 99
[2025-06-16 04:38] VITALS: BP 117/76; TEMP 97.2; O2SAT 96
[2025-06-17 07:08] VITALS: BP 112/75; TEMP 97.3; O2SAT 99
[2025-06-17 09:00] VITALS: BP 118/72; TEMP 97.3; O2SAT 98
[2025-06-18 07:01] VITALS: BP 102/56; TEMP 97.6; O2SAT 96
[2025-06-19 06:00] VITALS: BP 125/72; TEMP 97.7; O2SAT 99
[2025-06-19 11:41] VITALS: BP 113/67; TEMP 98; O2SAT 98
[2025-06-20 03:45] VITALS: BP 128/81; TEMP 98; O2SAT 97
[2025-06-21 05:28] VITALS: BP 116/73; TEMP 97.7; O2SAT 98
[2025-06-22 07:48] VITALS: BP 102/68; TEMP 98.9; O2SAT 99
[2025-06-23 06:32] VITALS: BP 128/67; TEMP 97.8; O2SAT 99
[2025-06-24 06:13] VITALS: BP 138/55; TEMP 98.6; O2SAT 99
[2025-06-24 10:28] VITALS: BP 106/60; TEMP 98.2; O2SAT 98
[2025-06-27 04:45] VITALS: BP 103/66; TEMP 97.6; O2SAT 100
[2025-06-30 06:23] VITALS: BP 112/60; TEMP 97.2; O2SAT 96
[2025-07-01 06:15] VITALS: BP 93/64; TEMP 97.9; O2SAT 96
[2025-07-02 06:35] VITALS: BP 101/67; TEMP 98.1; O2SAT 98
[2025-07-02 08:31] VITALS: BP 98/58; TEMP 98; O2SAT 95
[2025-07-03 06:25] VITALS: BP 97/67; TEMP 97.7; O2SAT 92
[2025-07-04 03:53] VITALS: BP 109/59; TEMP 97.6; O2SAT 98
[2025-07-06 07:11] VITALS: BP 86/49; TEMP 97.9; O2SAT 92
[2025-07-07 06:21] VITALS: BP 78/52; TEMP 97.6; O2SAT 94
[2025-07-07 06:57] VITALS: BP 78/52
[2025-07-07] MEDS: MIDODRINE 5 MG TAB PO ONE (06:57)
[2025-07-07 07:48] VITALS: BP 118/68; TEMP 97.1; O2SAT 100
[2025-07-07] MEDS ORDERED: PERCOCET 5MG/325MG TAB PO PRN (12:20)
[2025-07-07] MEDS ORDERED: SENNA 8.6 MG TAB PO PRN (12:25)
[2025-07-07] MEDS ORDERED: POLYVINYL ALCOHOL OPHTH SOLN 15ML (LIQUITEARS) OU PRN (12:25)
[2025-07-07] MEDS ORDERED: HYOSCYAMINE SULFATE 0.125 MG SUBL TABLET SL PRN (12:25)
[2025-07-07] MEDS ORDERED: ATROPINE SULFATE 1% OPHTH SOLN 2 ML BTL SL PRN (12:25)
[2025-07-07] MEDS ORDERED: MIRALAX *UNIT DOSE* 17 GM PACKET PO PRN (12:25)
[2025-07-07] MEDS ORDERED: ONDANSETRON 4MG ORAL DISINTEGRATING TAB PO PRN (12:25)
[2025-07-07] MEDS ORDERED: SALIVA SUBSTITUTE BTL MT PRN (12:25)
[2025-07-07] MEDS: PERCOCET 5MG/325MG TAB PO PRN (17:31)
[2025-07-08] MEDS: LORazepam 0.5 MG TAB PO PRN (19:55)
[2025-07-09] MEDS: MORPHINE 10 MG/0.5 ML ORAL CONCENTRATE SOLUTION U/D SL PRN (19:00)
== END 2025-07-12 14:10 | disposition expired | DRG 542 ==
LOC: M ED 00:45 → M ED INP 13:11 → M MS5PR 16:31
PROVIDERS: ADMIT Internal Medicine; ATTEND General Practice
DX: M84.522A Pathological fracture in neoplastic disease, left humerus, initial encounter for fracture (principal); D61.810 Antineoplastic chemotherapy induced pancytopenia; C79.51 Secondary malignant neoplasm of bone; C78.00 Secondary malignant neoplasm of unspecified lung; C18.0 Malignant neoplasm of cecum; C78.7 Secondary malignant neoplasm of liver and intrahepatic bile duct; N39.0 Urinary tract infection, site not specified; D84.9 Immunodeficiency, unspecified; I10 Essential (primary) hypertension; E78.5 Hyperlipidemia, unspecified; T45.1X5A Adverse effect of antineoplastic and immunosuppressive drugs, initial encounter; Z79.01 Long term (current) use of anticoagulants; K21.9 Gastro-esophageal reflux disease without esophagitis; G89.3 Neoplasm related pain (acute) (chronic); Z99.3 Dependence on wheelchair; D64.81 Anemia due to antineoplastic chemotherapy; D69.59 Other secondary thrombocytopenia; R54 Age-related physical debility; B96.20 Unspecified Escherichia coli [E. coli] as the cause of diseases classified elsewhere; E83.42 Hypomagnesemia; R57.1 Hypovolemic shock; F41.1 Generalized anxiety disorder; Z86.718 Personal history of other venous thrombosis and embolism; Z79.899 Other long term (current) drug therapy; Z91.030 Bee allergy status; Z91.040 Latex allergy status; Z92.21 Personal history of antineoplastic chemotherapy; Z98.49 Cataract extraction status, unspecified eye; Z86.73 Personal history of transient ischemic attack (TIA), and cerebral infarction without residual deficits; G62.9 Polyneuropathy, unspecified